=== PATIENT | male | born 1965 | race Caucasian/White ===

== ENCOUNTER 2016-03-23 20:06 | Emergency (ER) | payer MEDICARE, MEDICAID ==
[~2016-03-23 20:06] MED LIST: ADV250INH INH; ADVA230A INH; ASPI81TAEC PO; BREO1INH3 INH; LISI-542 PO; LOSA25TA8 PO; NEXI40CA PO; PROA1AER INH; SIMV40TA2 PO; SUCR1SS PO; SUCR1TA PO; ZOCO40TA PO; ZOCO80TA PO; ZOFR20TA PO
[2016-03-23] MEDS ORDERED: LOSARTAN 25 MG TAB As Ordered ONE (20:49)
--- NOTE | 2016-03-23 20:58 | REP ---
Clinical: None acute cerebral vascular accident. Comparison: 07/16/2015. Findings: Age-related atrophy and microvascular ischemic changes are appreciated. The ventricles and sulci are symmetric. Angelo-white differentiation is maintained. There is no evidence for acute intracranial hemorrhage, mass/mass effect, pathology or infarction. No extra-axial fluid collection. Calvarium is intact. Paranasal sinuses and mastoid air cells are clear. Impression: Age related atrophy and microvascular ischemic changes. No acute intracranial hemorrhage, infarction, or mass/mass effect. Signed by Julius Valdivia MD 03/23/2016 08:50 P
[2016-03-23 21:11] LABS: BASO # 0.3 K/mm3 (0.0-0.2); BASO % 2.4 % (0.0-1.0); EOS # 0.1 K/mm3 (0.0-0.50); EOS % 0.8 % (0.0-3.0); LARGE UNSTAINED CELL # 0.1 K/mm3 (0.0-0.4); LYMPH # 1.2 K/mm3 (1.5-4.5); LYMPH % 9.1 % (24.0-44.0); MEAN CORPUSCULAR HEMOGLOBIN 32.4 pg (27.0-33.0); MEAN CORPUSCULAR HGB CONC 35.6 g/dl (32.0-36.5); MEAN CORPUSCULAR VOLUME 90.9 fl (80.0-96.0); MONO # 1.1 K/mm3 (0.0-0.8); MONO % 8.5 % (0.0-5.0); NEUTROPHILS # 9.7 K/mm3 (1.8-7.7); NEUTROPHILS % 78.3 % (36.0-66.0); PLATELET COUNT, AUTOMATED 303 k/mm3 (150-450); RED CELL DISTRIBUTION WIDTH 13.2 % (11.5-14.5); WHITE BLOOD COUNT 12.4 K/mm3 (4.0-10.0)
--- NOTE | 2016-03-23 21:55 | REP ---
Clinical: Hypertension and chest pain . Comparison: 01/05/2016 . Findings: The mediastinum and cardiac silhouette are stable and mild cardiomegaly cannot be excluded. The lung mandujano are clear without acute consolidation, effusion, or pneumothorax. Skeletal structures are intact. Impression: Stable chest x-ray. No acute cardiopulmonary process. Signed by Julius Valdivia MD 03/23/2016 09:47 P
[2016-03-23 22:13] LABS: ANION GAP 10 MEQ/L (8-16); BLOOD UREA NITROGEN 11 MG/DL (7-18); CALCIUM LEVEL 9.1 MG/DL (8.5-10.1); CARBON DIOXIDE LEVEL 27 MEQ/L (21-32); CHLORIDE LEVEL 104 MEQ/L (98-107); GLOMERULAR FILTRATION RATE > 60.0 (>56); GLUCOSE, FASTING 108 MG/DL (70-105); POTASSIUM SERUM 4.1 MEQ/L (3.5-5.1); SODIUM LEVEL 141 MEQ/L (136-145)
--- NOTE | 2016-03-23 23:04 | EDDOCDS ---
Physician Documentation [facility] Name: Jacob Otero Age: 50 yrs Sex: Male : 1965 Arrival Date: 03/23/2016 Time: 20:06 Bed TR7 Private MD: Tami Campbell M. Disposition: 03/23/16 22:38 Discharged to Home/Self Care. Impression: Essential (primary) hypertension. - Condition is Stable. - Discharge Instructions: Hypertension. - Medication Reconciliation, Local Pharmacy Hours form. - Follow up: Tami Campbell; When: 2 - 3 days; Reason: Recheck today's complaints. - Problem is an ongoing problem. - Symptoms are unchanged. - Notes: You were seen in the ED for your high blood pressure. Bloodwork, EKG of the heart, cardiac monitoring, chest XRay and CT scan of the head showed no other acute findings at this time. As you are feeling better you may return home. Call your primary provider in the morning to arrange to be seen in the office for blood pressure recheck this week. Return to the ED for any headache, visual changes, weakness, numbess, chest pain, trouble breathing, or any other concerns. Historical: - Allergies: no known allergies; - Home Meds: 1. aspirin 81 mg Oral TbEC 1 tab once daily 2. Breo Ellipta 200-25 mcg/dose inhalation dsdv 1 puff once daily has not filled since September 3. losartan 25 mg oral tab once daily 4. Zocor 40 mg Oral tab 1 tab once daily 5. ProAir HFA 90 mcg/actuation inhalation HFAA 1 puff every 4 hours 6. Nexium 40 mg Oral cpDR 1 cap once daily 7. Advair Diskus 250-50 mcg/dose Inhl dsdv 1 puff 2 times per day 8. sucralfate 1 gram Oral tab 1 tab 2 times per day - PMHx: CAD; COPD; GERD; Hypercholesterolemia; Hypertension; "blockage in left side of heart, they are doing nothing with"; - Social history: Smoking status: Patient uses tobacco products, heavy tobacco smoker. Patient uses alcohol only on a social basis. Race: White, Ethnicity: Not or No barriers to communication noted, The patient speaks fluent Occitan, Preferred Language: Occitan. - Family history: Not pertinent. - : The pt / caregiver states he / she is not on anticoagulants. Home medication list is obtained from a discharge med list. - Exposure Risk Screening:: None identified. Vital Signs: 03/23 20:15 BP 136 / 73; Pulse 67; Resp 18; Temp 97.7(O); Pulse Ox 96% on R/A; Weight 87.09 kg / ls3 192 lbs; Height 6 ft. 1 in. (185.42 cm); Pain 0/10; 20:26 BP 148 / 77 (auto/); cf2 20:35 Pulse 58 MON; Pulse Ox 94% ; cf2 20:41 BP 159 / 78 (auto/); cf2 20:42 Pulse 70 MON; Pulse Ox 95% ; cf2 20:56 BP 153 / 74 (auto/); cf2 20:57 Pulse 60 MON; Pulse Ox 93% ; cf2 21:11 BP 170 / 89 (auto/); cf2 21:12 Pulse 68 MON; Pulse Ox 98% ; cf2 21:26 BP 171 / 95 (auto/); cf2 21:27 Pulse 72 MON; Pulse Ox 97% ; cf2 21:41 BP 165 / 95 (auto/); cf2 21:42 Pulse 74 MON; Pulse Ox 98% ; cf2 21:56 BP 169 / 98 (auto/); sls1 21:57 Pulse 90 MON; Pulse Ox 96% ; sls1 22:11 BP 172 / 93 (auto/); sls1 22:12 Pulse 72 MON; Pulse Ox 96% ; sls1 22:26 BP 175 / 96 (auto/); sls1 22:26 Pulse 76 MON; Pulse Ox 96% ; sls1 22:30 Pulse 82 MON; Resp 20; Pulse Ox 100% on R/A; sls1 22:31 BP 168 / 88 (auto/); sls1 20:15 Body Mass Index 25.33 (87.09 kg, 185.42 cm) ls3 MDM: 20:25 IV Saline Lock ordered. br1 20:25 Nut Chopper/Pulse Ox/q 30 min VS ordered. br1 20:25 Losartan 25 mg PO once ordered. br1 20:26 CBC with Diff Ordered. EDMS 20:26 BMP Ordered. EDMS 20:26 Troponin Ordered. EDMS 20:26 Chest, 1 View Ordered. EDMS 20:26 ECG WITH READING ER PHYS+CARDIAG ordered. EDMS 20:26 CT Head Without Contrast Ordered. EDMS 21:10 Financial registration complete. zo 21:11 [facility] Payment Agreement was scanned into [employer] and attached to record. zo 21:40 CBC with Diff Reviewed. br1 21:40 CT Head Without Contrast Reviewed. br1 22:29 BMP Reviewed. br1 22:29 Troponin Reviewed. br1 Administered Medications: 21:18 Drug: Losartan 25 mg [losartan 25 mg tablet (1 tabs)] Route: PO; cf2 Signatures: Dispatcher [employer] EDMS Eugenio Spears zo Watson Cardoza MD MD br1 Elisabet Valerio RN RN sls1 Eugenia Hdz RN RN cf2 The chart was reviewed and I authenticate all verbal orders and agree with the evaluation and treatment provided.Attachments: 21:11 [facility] Payment Agreement zo MTDD
--- NOTE | 2016-03-23 23:05 | EDDOCDS ---
Nurse's Notes [facility] Name: Jacob Otero Age: 50 yrs Sex: Male : 1965 Arrival Date: 03/23/2016 Time: 20:06 Bed TR7 Private MD: Tami Campbell M. Diagnosis: Essential (primary) hypertension Presentation: 03/23 20:14 Presenting complaint: Patient states: "my blood pressure was high today and my left leg cf2 hurts". Patient states at "1330, my blood pressure high number was 150's and at 1800 it was 180's". Denies injury or trauma to left leg EMS states: "Patient states elevated blood pressure, blood pressure was stable". Adult Sepsis Screening: The patient does not have new or worsening altered mentation. Patient's respiratory rate is less than 22. Systolic blood pressure is greater than 100. Patient has a qSOFA score of 0- Negative Sepsis Screen. Suicide/Homicide risk assessment- the patient denies having any suicidal and/or homicidal ideations and does not present with any other emotional, behavioral or mental health complaints. 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 Transition of care: patient was not received from another setting of care. 20:14 Acuity: ROBINSON Level 3 cf2 20:14 Method Of Arrival: Ambulance cf2 Triage Assessment: 20:21 General: Appears in no apparent distress, comfortable, Behavior is appropriate for age, cf2 cooperative. Pain: Location: left leg Pain does not radiate. Pt Declines HIV testing. Historical: - Allergies: no known allergies; - Home Meds: 1. aspirin 81 mg Oral TbEC 1 tab once daily 2. Breo Ellipta 200-25 mcg/dose inhalation dsdv 1 puff once daily has not filled since September 3. losartan 25 mg oral tab once daily 4. Zocor 40 mg Oral tab 1 tab once daily 5. ProAir HFA 90 mcg/actuation inhalation HFAA 1 puff every 4 hours 6. Nexium 40 mg Oral cpDR 1 cap once daily 7. Advair Diskus 250-50 mcg/dose Inhl dsdv 1 puff 2 times per day 8. sucralfate 1 gram Oral tab 1 tab 2 times per day - PMHx: CAD; COPD; GERD; Hypercholesterolemia; Hypertension; "blockage in left side of heart, they are doing nothing with"; - Social history: Smoking status: Patient uses tobacco products, heavy tobacco smoker. Patient uses alcohol only on a social basis. Race: White, Ethnicity: Not or No barriers to communication noted, The patient speaks fluent Cuban, Preferred Language: Cuban. - Family history: Not pertinent. - : The pt / caregiver states he / she is not on anticoagulants. Home medication list is obtained from a discharge med list. - Exposure Risk Screening:: None identified. Screenin:43 Screening information is obtained from the patient. Fall risk: No risks identified. cf2 Assistance ADL's: requires no assistance with activities of daily living. Abuse/DV Screen: The patient / caregiver reports he/she is: not in a situation that causes fear, pain or injury. Nutritional screening: No deficits noted. Advance Directives: Further advance directive information is declined. home support is adequate. Assessment: 20:22 General: See triage note. cf2 21:43 Adult Sepsis Screening: The patient does not have new or worsening altered mentation. cf2 Patient's respiratory rate is less than 22. Systolic blood pressure is greater than 100. Patient has a qSOFA score of 0- Negative Sepsis Screen. Pain: Denies pain. Neurological: No deficits noted. EENT: No deficits noted. Cardiovascular: No deficits noted. Respiratory: No deficits noted. GI: No deficits noted. : No deficits noted. Derm: No deficits noted. Musculoskeletal: No deficits noted. Injury Description: No known injury. 23:02 General: Appears in no apparent distress, Behavior is appropriate for age, cooperative, sls1 Discharge instructions reviewed with pt including follow up care, verbalizes understanding of all instructions, pt dc home via medicaid cab. Pain: Denies pain. Neurological: Level of Consciousness is awake, alert. Respiratory: Airway is patent Respiratory effort is even, unlabored, Respiratory pattern is regular, symmetrical. Vital Signs: 20:15 BP 136 / 73; Pulse 67; Resp 18; Temp 97.7(O); Pulse Ox 96% on R/A; Weight 87.09 kg; ls3 Height 6 ft. 1 in. (185.42 cm); Pain 0/10; 20:26 BP 148 / 77 (auto/); cf2 20:35 Pulse 58 MON; Pulse Ox 94% ; cf2 20:41 BP 159 / 78 (auto/); cf2 20:42 Pulse 70 MON; Pulse Ox 95% ; cf2 20:56 BP 153 / 74 (auto/); cf2 20:57 Pulse 60 MON; Pulse Ox 93% ; cf2 21:11 BP 170 / 89 (auto/); cf2 21:12 Pulse 68 MON; Pulse Ox 98% ; cf2 21:26 BP 171 / 95 (auto/); cf2 21:27 Pulse 72 MON; Pulse Ox 97% ; cf2 21:41 BP 165 / 95 (auto/); cf2 21:42 Pulse 74 MON; Pulse Ox 98% ; cf2 21:56 BP 169 / 98 (auto/); sls1 21:57 Pulse 90 MON; Pulse Ox 96% ; sls1 22:11 BP 172 / 93 (auto/); sls1 22:12 Pulse 72 MON; Pulse Ox 96% ; sls1 22:26 BP 175 / 96 (auto/); sls1 22:26 Pulse 76 MON; Pulse Ox 96% ; sls1 22:30 Pulse 82 MON; Resp 20; Pulse Ox 100% on R/A; sls1 22:31 BP 168 / 88 (auto/); sls1 20:15 Body Mass Index 25.33 (87.09 kg, 185.42 cm) ls3 Vitals: 20:21 Log In Time N/A - ambulance arrival. cf2 ED Course: 20:07 Patient visited by Magdalena Reyes PCA. tmm1 20:07 Patient moved to Waiting tmm1 20:08 Tami Campbell is Private Physician. tmm1 20:08 Patient moved to 10 tmm1 20:09 Watson Cardoza MD is Attending Physician. br1 20:14 Eugenia Hdz,RN is Primary Nurse. cf2 20:14 Patient visited by Eugenia Hdz,SANTI. cf2 20:16 Patient visited by Krista Gongora PCA. ls3 20:17 Triage Initiated cf2 20:23 Patient visited by Watson Cardoza MD. br1 20:31 Patient visited by Eugenia Hdz,RN. cf2 20:58 Patient visited by Krista Gongora PCA. ls3 20:58 EKG done. (by ED staff). Reviewed by Watson Cardoza MD. ls3 21:11 [facility] Payment Agreement was scanned into [employer] and attached to record. zo 21:38 CT Head Without Contrast Returned. EDMS 21:43 Patient visited by Eugenia Hdz,SANTI. cf2 21:43 The patient / caregiver is instructed regarding the plan of care and ED course. Patient cf2 has correct armband on for positive identification. Placed in gown. Bed in low position. Call light in reach. Side rails up X 1. Side rails up X2. senior cyber intelligence analyst on. Pulse ox on. NIBP on. Property :Personal belongings accompany Pt. Door closed. Noise minimized. Visitors limited. Lights dimmed. Moved to private room. Verbal reassurance given. Warm blanket given. Pillow given. Head of bed elevated. 21:43 Inserted saline lock: 20 gauge in left forearm and blood collected. The patient cf2 tolerated the procedure well. No procedures done that require assistance. Labs drawn. (by ED staff). 22:19 Patient visited by Eugenia Hdz RN. cf2 22:30 Discontinued lock intact, bleeding controlled, pressure dressing applied, No sls1 redness/swelling at site. 22:32 Patient visited by Watson Cardoza MD. br1 22:37 Tami Campbell is Referral Physician. br1 22:46 Chest, 1 View Returned. EDMS 23:02 Patient moved to [place] [id number] Administered Medications: 21:18 Drug: Losartan 25 mg [losartan 25 mg tablet (1 tabs)] Route: PO; cf2 Order Results: Lab Order: CBC with Diff; SPEC'M 03/23/16 20:57 Test: WHITE BLOOD COUNT; Value: 12.4; Range: 4.0-10.0; Abnormal: Above high normal; Units: K/mm3; Status: F Test: RED BLOOD COUNT; Value: 5.23; Range: 4.30-6.10; Units: M/mm3; Status: F Test: HEMOGLOBIN; Value: 16.9; Range: 14.0-18.0; Units: g/dl; Status: F Test: HEMATOCRIT; Value: 47.5; Range: 42.0-52.0; Units: %; Status: F Test: MEAN CORPUSCULAR VOLUME; Value: 90.9; Range: 80.0-96.0; Units: fl; Status: F Test: MEAN CORPUSCULAR HEMOGLOBIN; Value: 32.4; Range: 27.0-33.0; Units: pg; Status: F Test: MEAN CORPUSCULAR HGB CONC; Value: 35.6; Range: 32.0-36.5; Units: g/dl; Status: F Test: RED CELL DISTRIBUTION WIDTH; Value: 13.2; Range: 11.5-14.5; Units: %; Status: F Test: PLATELET COUNT, AUTOMATED; Value: 303; Range: 150-450; Units: k/mm3; Status: F Test: NEUTROPHILS %; Value: 78.3; Range: 36.0-66.0; Abnormal: Above high normal; Units: %; Status: F Test: LYMPH %; Value: 9.1; Range: 24.0-44.0; Abnormal: Below low normal; Units: %; Status: F Test: MONO %; Value: 8.5; Range: 0.0-5.0; Abnormal: Above high normal; Units: %; Status: F Test: EOS %; Value: 0.8; Range: 0.0-3.0; Units: %; Status: F Test: BASO %; Value: 2.4; Range: 0.0-1.0; Abnormal: Above high normal; Units: %; Status: F Test: LARGE UNSTAINED CELL %; Value: 1.0; Range: 0.0-4.0; Units: %; Status: F Test: NEUTROPHILS #; Value: 9.7; Range: 1.8-7.7; Abnormal: Above high normal; Units: K/mm3; Status: F Test: LYMPH #; Value: 1.2; Range: 1.5-4.5; Abnormal: Below low normal; Units: K/mm3; Status: F Test: MONO #; Value: 1.1; Range: 0.0-0.8; Abnormal: Above high normal; Units: K/mm3; Status: F Test: EOS #; Value: 0.1; Range: 0.0-0.50; Units: K/mm3; Status: F Test: BASO #; Value: 0.3; Range: 0.0-0.2; Abnormal: Above high normal; Units: K/mm3; Status: F Test: LARGE UNSTAINED CELL #; Value: 0.1; Range: 0.0-0.4; Units: K/mm3; Status: F Lab Order: BMP; SPEC'M 03/23/16 21:38 Test: GLUCOSE, FASTING; Value: 108; Range: 70-105; Abnormal: Above high normal; Units: MG/DL; Status: F Test: BLOOD UREA NITROGEN; Value: 11; Range: 7-18; Units: MG/DL; Status: F Test: CREATININE FOR GFR; Value: 1.10; Range: 0.70-1.30; Units: MG/DL; Status: F Test: GLOMERULAR FILTRATION RATE; Value: > 60.0; Range: >56; Status: F Test: SODIUM LEVEL; Value: 141; Range: 136-145; Units: MEQ/L; Status: F Test: POTASSIUM SERUM; Value: 4.1; Range: 3.5-5.1; Units: MEQ/L; Status: F Test: CHLORIDE LEVEL; Value: 104; Range: 98-107; Units: MEQ/L; Status: F Test: CARBON DIOXIDE LEVEL; Value: 27; Range: 21-32; Units: MEQ/L; Status: F Test: ANION GAP; Value: 10; Range: 8-16; Units: MEQ/L; Status: F Test: CALCIUM LEVEL; Value: 9.1; Range: 8.5-10.1; Units: MG/DL; Status: F Test Note: ; Units are mL/min/1.73 m2 Chronic Kidney Disease Staging per NKF: Stage I & II GFR >=60 Normal to Mildly Decreased Stage III GFR 30-59 Moderately Decreased Stage IV GFR 15-29 Severely Decreased Stage V GFR <15 Very Little GFR Left ESRD GFR <15 on FORMSTONE FITTER Lab Order: Troponin; SPEC'M 03/23/16 21:38 Test: TROPONIN I; Value: < 0.02; Range: < 0.10; Units: NG/ML; Status: F Test Note: ; Troponin I Reference Interval for [employer] LOCI: 99th Percentile= 0.00-0.045 ng/ml Risk Stratification: <= 0.10 ng/ml Decreased Risk for Adverse Clinical Events. 0.10-1.50 ng/ml Increased Risk for Adverse Clinical Events. Evaluation of additional criterion and/or repeat testing in 2-6 hours is suggested to rule out myocardial damage. >= 1.50 ng/ml Indicative of Myocardial Injury. Radiology Order: Chest, 1 View Test: Chest, 1 View REASON FOR EXAMINATION: htn eval for chf; Clinical: Hypertension and chest pain .; ; Comparison: 01/05/2016 .; ; Findings:; The mediastinum and cardiac silhouette are stable and mild cardiomegaly cannot be; excluded. The lung mandujano are clear without acute consolidation, effusion, or; pneumothorax. Skeletal structures are intact.; ; Impression:; Stable chest x-ray. No acute cardiopulmonary process.; ; ; Signed by; Julius Valdivia MD 03/23/2016 09:47 P; Radiology Order: CT Head Without Contrast Test: CT Head Without Contrast REASON FOR EXAMINATION: CVA >4.5hrs; Clinical: None acute cerebral vascular accident.; ; Comparison: 07/16/2015.; ; Findings:; Age-related atrophy and microvascular ischemic changes are appreciated. The; ventricles and sulci are symmetric. Angelo-white differentiation is maintained.; There is no evidence for acute intracranial hemorrhage, mass/mass effect,; pathology or infarction. No extra-axial fluid collection. Calvarium is intact.; Paranasal sinuses and mastoid air cells are clear.; ; Impression:; Age related atrophy and microvascular ischemic changes.; No acute intracranial hemorrhage, infarction, or mass/mass effect.; ; ; Signed by; Julius Valdivia MD 03/23/2016 08:50 P; Outcome: 21:43 CT Study completed. cf2 22:30 Discharge Assessment: Patient awake, alert and oriented x 3. No cognitive and/or sls1 functional deficits noted. Patient verbalized understanding of disposition instructions. patient administered narcotics - no. The following High Risk Discharge criteria are identified: None. Discharged to home ambulatory. Condition: stable. Discharge instructions given to patient, Instructed on discharge instructions, follow up and referral plans. Demonstrated understanding of instructions, Pt was receptive of discharge instructions/ teaching. 22:38 Discharge ordered by Provider. br1 23:04 Patient left the ED. sls1 Signatures: Dispatcher [employer] EDMS Eugenio Spears Brian, MD MD br1 Elisabet Valerio RN RN sls1 Magdalena Reyes, FULL SERVICE SUPERVISOR FULL SERVICE SUPERVISOR tmm1 Krista Gongora, FULL SERVICE SUPERVISOR FULL SERVICE SUPERVISOR ls3 Eugenia Hdz,SANTI RN cf2 MTDD
--- NOTE | 2016-03-24 18:02 | ECGEPIP ---
Stationary ECG Study [facility] - ED Test Date: 2016-03-23 Pat Name: MINH MALDONADO Department: Room: - Gender: M [employer]er Machine: : [id number] Requested By: AROLDO Castillo Order Number: [id number] Reading MD: Christina Patel Measurements Intervals [place] Rate: 62 P: 62 SC: 169 QRS: 3 QRSD: 170 T: 147 QT: 478 QTc: 489 Interpretive Statements SINUS RHYTHM WITH SINUS ARRHYTHMIA LEFT BUNDLE BRANCH BLOCK INCREASED RATE 01/06/16 Electronically Signed On 03-24-2016 18:02:19 EST by Christina Patel
--- NOTE | 2016-03-26 00:05 | EDDOCDS ---
Physician Documentation [facility] Name: Jacob Otero Age: 50 yrs Sex: Male : 1965 Arrival Date: 03/23/2016 Time: 20:06 Bed TR7 Private MD: Tami Campbell M. Disposition: 03/23/16 22:38 Discharged to Home/Self Care. Impression: Essential (primary) hypertension. - Condition is Stable. - Discharge Instructions: Hypertension. - Medication Reconciliation, Local Pharmacy Hours form. - Follow up: Tami Campbell; When: 2 - 3 days; Reason: Recheck today's complaints. - Problem is an ongoing problem. - Symptoms are unchanged. - Notes: You were seen in the ED for your high blood pressure. Bloodwork, EKG of the heart, cardiac monitoring, chest XRay and CT scan of the head showed no other acute findings at this time. As you are feeling better you may return home. Call your primary provider in the morning to arrange to be seen in the office for blood pressure recheck this week. Return to the ED for any headache, visual changes, weakness, numbess, chest pain, trouble breathing, or any other concerns. Historical: - Allergies: no known allergies; - Home Meds: 1. aspirin 81 mg Oral TbEC 1 tab once daily 2. Breo Ellipta 200-25 mcg/dose inhalation dsdv 1 puff once daily has not filled since September 3. losartan 25 mg oral tab once daily 4. Zocor 40 mg Oral tab 1 tab once daily 5. ProAir HFA 90 mcg/actuation inhalation HFAA 1 puff every 4 hours 6. Nexium 40 mg Oral cpDR 1 cap once daily 7. Advair Diskus 250-50 mcg/dose Inhl dsdv 1 puff 2 times per day 8. sucralfate 1 gram Oral tab 1 tab 2 times per day - PMHx: CAD; COPD; GERD; Hypercholesterolemia; Hypertension; "blockage in left side of heart, they are doing nothing with"; - Social history: Smoking status: Patient uses tobacco products, heavy tobacco smoker. Patient uses alcohol only on a social basis. Race: White, Ethnicity: Not or No barriers to communication noted, The patient speaks fluent Pashto, Preferred Language: Pashto. - Family history: Not pertinent. - : The pt / caregiver states he / she is not on anticoagulants. Home medication list is obtained from a discharge med list. - Exposure Risk Screening:: None identified. Vital Signs: 03/23 20:15 BP 136 / 73; Pulse 67; Resp 18; Temp 97.7(O); Pulse Ox 96% on R/A; Weight 87.09 kg / ls3 192 lbs; Height 6 ft. 1 in. (185.42 cm); Pain 0/10; 20:26 BP 148 / 77 (auto/); cf2 20:35 Pulse 58 MON; Pulse Ox 94% ; cf2 20:41 BP 159 / 78 (auto/); cf2 20:42 Pulse 70 MON; Pulse Ox 95% ; cf2 20:56 BP 153 / 74 (auto/); cf2 20:57 Pulse 60 MON; Pulse Ox 93% ; cf2 21:11 BP 170 / 89 (auto/); cf2 21:12 Pulse 68 MON; Pulse Ox 98% ; cf2 21:26 BP 171 / 95 (auto/); cf2 21:27 Pulse 72 MON; Pulse Ox 97% ; cf2 21:41 BP 165 / 95 (auto/); cf2 21:42 Pulse 74 MON; Pulse Ox 98% ; cf2 21:56 BP 169 / 98 (auto/); sls1 21:57 Pulse 90 MON; Pulse Ox 96% ; sls1 22:11 BP 172 / 93 (auto/); sls1 22:12 Pulse 72 MON; Pulse Ox 96% ; sls1 22:26 BP 175 / 96 (auto/); sls1 22:26 Pulse 76 MON; Pulse Ox 96% ; sls1 22:30 Pulse 82 MON; Resp 20; Pulse Ox 100% on R/A; sls1 22:31 BP 168 / 88 (auto/); sls1 20:15 Body Mass Index 25.33 (87.09 kg, 185.42 cm) ls3 MDM: 20:25 IV Saline Lock ordered. br1 20:25 Tube Sizer And Cutter Operator/Pulse Ox/q 30 min VS ordered. br1 20:25 Losartan 25 mg PO once ordered. br1 20:26 CBC with Diff Ordered. EDMS 20:26 BMP Ordered. EDMS 20:26 Troponin Ordered. EDMS 20:26 Chest, 1 View Ordered. EDMS 20:26 ECG WITH READING ER PHYS+CARDIAG ordered. EDMS 20:26 CT Head Without Contrast Ordered. EDMS 21:10 Financial registration complete. zo 21:11 [facility] Payment Agreement was scanned into [employer] and attached to record. zo 21:40 CBC with Diff Reviewed. br1 21:40 CT Head Without Contrast Reviewed. br1 22:29 BMP Reviewed. br1 22:29 Troponin Reviewed. br1 03/24 09:32 T-Sheet-- Draft Copy was scanned into [employer] and attached to record. gb 09:33 ECG/EKG was scanned into [employer] and attached to record. gb 13:02 PCR was scanned into [employer] and attached to record. gb Administered Medications: 03/23 21:18 Drug: Losartan 25 mg [losartan 25 mg tablet (1 tabs)] Route: PO; cf2 Signatures: Dispatcher [employer] EDMS Jo Ann Umana, Reg Reg gb Eugenio Spears zo Watson Cardoza MD MD br1 Elisabet Valerio RN RN sls1 Eugenia Hdz RN RN cf2 The chart was reviewed and I authenticate all verbal orders and agree with the evaluation and treatment provided.Attachments: 21:11 [facility] Payment Agreement zo 03/24 09:32 T-Sheet-- Draft Copy gb 09:33 ECG/EKG gb Chart Complete MTDD
--- NOTE | 2016-03-26 00:05 | EDDOCDS ---
Nurse's Notes [facility] Name: Minh Otero Age: 50 yrs Sex: Male : 1965 Arrival Date: 03/23/2016 Time: 20:06 Bed TR7 Private MD: Tami Campbell M. Diagnosis: Essential (primary) hypertension Presentation: 03/23 20:14 Presenting complaint: Patient states: "my blood pressure was high today and my left leg cf2 hurts". Patient states at "1330, my blood pressure high number was 150's and at 1800 it was 180's". Denies injury or trauma to left leg EMS states: "Patient states elevated blood pressure, blood pressure was stable". Adult Sepsis Screening: The patient does not have new or worsening altered mentation. Patient's respiratory rate is less than 22. Systolic blood pressure is greater than 100. Patient has a qSOFA score of 0- Negative Sepsis Screen. Suicide/Homicide risk assessment- the patient denies having any suicidal and/or homicidal ideations and does not present with any other emotional, behavioral or mental health complaints. Status: Unknown if supervisor volunteer services or dependent. Transition of care: patient was not received from another setting of care. 20:14 Acuity: ROBINSON Level 3 cf2 20:14 Method Of Arrival: Ambulance cf2 Triage Assessment: 20:21 General: Appears in no apparent distress, comfortable, Behavior is appropriate for age, cf2 cooperative. Pain: Location: left leg Pain does not radiate. Pt Declines HIV testing. Historical: - Allergies: no known allergies; - Home Meds: 1. aspirin 81 mg Oral TbEC 1 tab once daily 2. Breo Ellipta 200-25 mcg/dose inhalation dsdv 1 puff once daily has not filled since September 3. losartan 25 mg oral tab once daily 4. Zocor 40 mg Oral tab 1 tab once daily 5. ProAir HFA 90 mcg/actuation inhalation HFAA 1 puff every 4 hours 6. Nexium 40 mg Oral cpDR 1 cap once daily 7. Advair Diskus 250-50 mcg/dose Inhl dsdv 1 puff 2 times per day 8. sucralfate 1 gram Oral tab 1 tab 2 times per day - PMHx: CAD; COPD; GERD; Hypercholesterolemia; Hypertension; "blockage in left side of heart, they are doing nothing with"; - Social history: Smoking status: Patient uses tobacco products, heavy tobacco smoker. Patient uses alcohol only on a social basis. Race: White, Ethnicity: Not or No barriers to communication noted, The patient speaks fluent German, Preferred Language: German. - Family history: Not pertinent. - : The pt / caregiver states he / she is not on anticoagulants. Home medication list is obtained from a discharge med list. - Exposure Risk Screening:: None identified. Screenin:43 Screening information is obtained from the patient. Fall risk: No risks identified. cf2 Assistance ADL's: requires no assistance with activities of daily living. Abuse/DV Screen: The patient / caregiver reports he/she is: not in a situation that causes fear, pain or injury. Nutritional screening: No deficits noted. Advance Directives: Further advance directive information is declined. home support is adequate. Assessment: 20:22 General: See triage note. cf2 21:43 Adult Sepsis Screening: The patient does not have new or worsening altered mentation. cf2 Patient's respiratory rate is less than 22. Systolic blood pressure is greater than 100. Patient has a qSOFA score of 0- Negative Sepsis Screen. Pain: Denies pain. Neurological: No deficits noted. EENT: No deficits noted. Cardiovascular: No deficits noted. Respiratory: No deficits noted. GI: No deficits noted. : No deficits noted. Derm: No deficits noted. Musculoskeletal: No deficits noted. Injury Description: No known injury. 23:02 General: Appears in no apparent distress, Behavior is appropriate for age, cooperative, sls1 Discharge instructions reviewed with pt including follow up care, verbalizes understanding of all instructions, pt dc home via medicaid cab. Pain: Denies pain. Neurological: Level of Consciousness is awake, alert. Respiratory: Airway is patent Respiratory effort is even, unlabored, Respiratory pattern is regular, symmetrical. Vital Signs: 20:15 BP 136 / 73; Pulse 67; Resp 18; Temp 97.7(O); Pulse Ox 96% on R/A; Weight 87.09 kg; ls3 Height 6 ft. 1 in. (185.42 cm); Pain 0/10; 20:26 BP 148 / 77 (auto/); cf2 20:35 Pulse 58 MON; Pulse Ox 94% ; cf2 20:41 BP 159 / 78 (auto/); cf2 20:42 Pulse 70 MON; Pulse Ox 95% ; cf2 20:56 BP 153 / 74 (auto/); cf2 20:57 Pulse 60 MON; Pulse Ox 93% ; cf2 21:11 BP 170 / 89 (auto/); cf2 21:12 Pulse 68 MON; Pulse Ox 98% ; cf2 21:26 BP 171 / 95 (auto/); cf2 21:27 Pulse 72 MON; Pulse Ox 97% ; cf2 21:41 BP 165 / 95 (auto/); cf2 21:42 Pulse 74 MON; Pulse Ox 98% ; cf2 21:56 BP 169 / 98 (auto/); sls1 21:57 Pulse 90 MON; Pulse Ox 96% ; sls1 22:11 BP 172 / 93 (auto/); sls1 22:12 Pulse 72 MON; Pulse Ox 96% ; sls1 22:26 BP 175 / 96 (auto/); sls1 22:26 Pulse 76 MON; Pulse Ox 96% ; sls1 22:30 Pulse 82 MON; Resp 20; Pulse Ox 100% on R/A; sls1 22:31 BP 168 / 88 (auto/); sls1 20:15 Body Mass Index 25.33 (87.09 kg, 185.42 cm) ls3 Vitals: 20:21 Log In Time N/A - ambulance arrival. cf2 ED Course: 20:07 Patient visited by Magdalena Reyes PCA. tmm1 20:07 Patient moved to Waiting tmm1 20:08 Tami Campbell is Private Physician. tmm1 20:08 Patient moved to 10 tmm1 20:09 Watson Cardoza MD is Attending Physician. br1 20:14 Eugenia Hdz,RN is Primary Nurse. cf2 20:14 Patient visited by Eugenia Hdz,SANTI. cf2 20:16 Patient visited by Krista Gongora PCA. ls3 20:17 Triage Initiated cf2 20:23 Patient visited by Watson Cardoza MD. br1 20:31 Patient visited by Eugenia Hdz,RN. cf2 20:58 Patient visited by Krista Gongora PCA. ls3 20:58 EKG done. (by ED staff). Reviewed by Watson Cardoza MD. ls3 21:11 [facility] Payment Agreement was scanned into [employer] and attached to record. zo 21:38 CT Head Without Contrast Returned. EDMS 21:43 Patient visited by Eugenia Hdz,SANTI. cf2 21:43 The patient / caregiver is instructed regarding the plan of care and ED course. Patient cf2 has correct armband on for positive identification. Placed in gown. Bed in low position. Call light in reach. Side rails up X 1. Side rails up X2. court monitor on. Pulse ox on. NIBP on. Property :Personal belongings accompany Pt. Door closed. Noise minimized. Visitors limited. Lights dimmed. Moved to private room. Verbal reassurance given. Warm blanket given. Pillow given. Head of bed elevated. 21:43 Inserted saline lock: 20 gauge in left forearm and blood collected. The patient cf2 tolerated the procedure well. No procedures done that require assistance. Labs drawn. (by ED staff). 22:19 Patient visited by Eugenia Hdz,SANTI. cf2 22:30 Discontinued lock intact, bleeding controlled, pressure dressing applied, No sls1 redness/swelling at site. 22:32 Patient visited by Watson Cardoza MD. br1 22:37 Tami Campbell is Referral Physician. br1 22:46 Chest, 1 View Returned. EDMS 23:02 Patient moved to [place] [id number] 03/24 09:32 T-Sheet-- Draft Copy was scanned into [employer] and attached to record. gb 09:33 ECG/EKG was scanned into [employer] and attached to record. gb 13:02 PCR was scanned into [employer] and attached to record. gb 18:09 EKG-ADULT Returned. EDMS Administered Medications: 03/23 21:18 Drug: Losartan 25 mg [losartan 25 mg tablet (1 tabs)] Route: PO; cf2 Order Results: Lab Order: CBC with Diff; SPEC'M 03/23/16 20:57 Test: WHITE BLOOD COUNT; Value: 12.4; Range: 4.0-10.0; Abnormal: Above high normal; Units: K/mm3; Status: F Test: RED BLOOD COUNT; Value: 5.23; Range: 4.30-6.10; Units: M/mm3; Status: F Test: HEMOGLOBIN; Value: 16.9; Range: 14.0-18.0; Units: g/dl; Status: F Test: HEMATOCRIT; Value: 47.5; Range: 42.0-52.0; Units: %; Status: F Test: MEAN CORPUSCULAR VOLUME; Value: 90.9; Range: 80.0-96.0; Units: fl; Status: F Test: MEAN CORPUSCULAR HEMOGLOBIN; Value: 32.4; Range: 27.0-33.0; Units: pg; Status: F Test: MEAN CORPUSCULAR HGB CONC; Value: 35.6; Range: 32.0-36.5; Units: g/dl; Status: F Test: RED CELL DISTRIBUTION WIDTH; Value: 13.2; Range: 11.5-14.5; Units: %; Status: F Test: PLATELET COUNT, AUTOMATED; Value: 303; Range: 150-450; Units: k/mm3; Status: F Test: NEUTROPHILS %; Value: 78.3; Range: 36.0-66.0; Abnormal: Above high normal; Units: %; Status: F Test: LYMPH %; Value: 9.1; Range: 24.0-44.0; Abnormal: Below low normal; Units: %; Status: F Test: MONO %; Value: 8.5; Range: 0.0-5.0; Abnormal: Above high normal; Units: %; Status: F Test: EOS %; Value: 0.8; Range: 0.0-3.0; Units: %; Status: F Test: BASO %; Value: 2.4; Range: 0.0-1.0; Abnormal: Above high normal; Units: %; Status: F Test: LARGE UNSTAINED CELL %; Value: 1.0; Range: 0.0-4.0; Units: %; Status: F Test: NEUTROPHILS #; Value: 9.7; Range: 1.8-7.7; Abnormal: Above high normal; Units: K/mm3; Status: F Test: LYMPH #; Value: 1.2; Range: 1.5-4.5; Abnormal: Below low normal; Units: K/mm3; Status: F Test: MONO #; Value: 1.1; Range: 0.0-0.8; Abnormal: Above high normal; Units: K/mm3; Status: F Test: EOS #; Value: 0.1; Range: 0.0-0.50; Units: K/mm3; Status: F Test: BASO #; Value: 0.3; Range: 0.0-0.2; Abnormal: Above high normal; Units: K/mm3; Status: F Test: LARGE UNSTAINED CELL #; Value: 0.1; Range: 0.0-0.4; Units: K/mm3; Status: F Lab Order: BMP; SPEC'M 03/23/16 21:38 Test: GLUCOSE, FASTING; Value: 108; Range: 70-105; Abnormal: Above high normal; Units: MG/DL; Status: F Test: BLOOD UREA NITROGEN; Value: 11; Range: 7-18; Units: MG/DL; Status: F Test: CREATININE FOR GFR; Value: 1.10; Range: 0.70-1.30; Units: MG/DL; Status: F Test: GLOMERULAR FILTRATION RATE; Value: > 60.0; Range: >56; Status: F Test: SODIUM LEVEL; Value: 141; Range: 136-145; Units: MEQ/L; Status: F Test: POTASSIUM SERUM; Value: 4.1; Range: 3.5-5.1; Units: MEQ/L; Status: F Test: CHLORIDE LEVEL; Value: 104; Range: 98-107; Units: MEQ/L; Status: F Test: CARBON DIOXIDE LEVEL; Value: 27; Range: 21-32; Units: MEQ/L; Status: F Test: ANION GAP; Value: 10; Range: 8-16; Units: MEQ/L; Status: F Test: CALCIUM LEVEL; Value: 9.1; Range: 8.5-10.1; Units: MG/DL; Status: F Test Note: ; Units are mL/min/1.73 m2 Chronic Kidney Disease Staging per NKF: Stage I & II GFR >=60 Normal to Mildly Decreased Stage III GFR 30-59 Moderately Decreased Stage IV GFR 15-29 Severely Decreased Stage V GFR <15 Very Little GFR Left ESRD GFR <15 on HAND SCREEN PRINTER Lab Order: Troponin; SPEC'M 03/23/16 21:38 Test: TROPONIN I; Value: < 0.02; Range: < 0.10; Units: NG/ML; Status: F Test Note: ; Troponin I Reference Interval for Siemens [place] LOCI: 99th Percentile= 0.00-0.045 ng/ml Risk Stratification: <= 0.10 ng/ml Decreased Risk for Adverse Clinical Events. 0.10-1.50 ng/ml Increased Risk for Adverse Clinical Events. Evaluation of additional criterion and/or repeat testing in 2-6 hours is suggested to rule out myocardial damage. >= 1.50 ng/ml Indicative of Myocardial Injury. Radiology Order: EKG-ADULT Test: EKG-ADULT REASON FOR EXAMINATION: dysrhythmia; Stationary ECG Study; [facility] - ED; ; Test Date: 2016-03-23; Pat Name: MINH OTERO Department:; Room: -; Gender: M [employer]:; : 1965 Requested By: WATSON Castillo; Order Number: [id number] Reading MD: Christina Patel; Measurements; Intervals [place]; Rate: 62 P: 62; RI: 169 QRS: 3; QRSD: 170 T: 147; QT: 478; QTc: 489; Interpretive Statements; SINUS RHYTHM WITH SINUS ARRHYTHMIA; LEFT BUNDLE BRANCH BLOCK; INCREASED RATE 01/06/16; Electronically Signed On 03-24-2016 18:02:19 EST by Christina Patel; Radiology Order: Chest, 1 View Test: Chest, 1 View REASON FOR EXAMINATION: htn eval for chf; Clinical: Hypertension and chest pain .; ; Comparison: 01/05/2016 .; ; Findings:; The mediastinum and cardiac silhouette are stable and mild cardiomegaly cannot be; excluded. The lung mandujano are clear without acute consolidation, effusion, or; pneumothorax. Skeletal structures are intact.; ; Impression:; Stable chest x-ray. No acute cardiopulmonary process.; ; ; Signed by; Julius Valdivia MD 03/23/2016 09:47 P; Radiology Order: CT Head Without Contrast Test: CT Head Without Contrast REASON FOR EXAMINATION: CVA >4.5hrs; Clinical: None acute cerebral vascular accident.; ; Comparison: 07/16/2015.; ; Findings:; Age-related atrophy and microvascular ischemic changes are appreciated. The; ventricles and sulci are symmetric. Angelo-white differentiation is maintained.; There is no evidence for acute intracranial hemorrhage, mass/mass effect,; pathology or infarction. No extra-axial fluid collection. Calvarium is intact.; Paranasal sinuses and mastoid air cells are clear.; ; Impression:; Age related atrophy and microvascular ischemic changes.; No acute intracranial hemorrhage, infarction, or mass/mass effect.; ; ; Signed by; Julius Valdivia MD 03/23/2016 08:50 P; Outcome: 21:43 CT Study completed. cf2 22:30 Discharge Assessment: Patient awake, alert and oriented x 3. No cognitive and/or sls1 functional deficits noted. Patient verbalized understanding of disposition instructions. patient administered narcotics - no. The following High Risk Discharge criteria are identified: None. Discharged to home ambulatory. Condition: stable. Discharge instructions given to patient, Instructed on discharge instructions, follow up and referral plans. Demonstrated understanding of instructions, Pt was receptive of discharge instructions/ teaching. 22:38 Discharge ordered by Provider. br1 23:04 Patient left the ED. sls1 Signatures: Dispatcher [employer] EDMS Jo Ann Umana, Eugenio Devine Brian, MD MD br1 Elisabet Valerio, RN RN sls1 Magdalena Reyes, MICRO LAB ANALYST MICRO LAB ANALYST tmm1 Krista Gongora, MICRO LAB ANALYST MICRO LAB ANALYST ls3 Eugenia Hdz,RN RN cf2 Chart Complete MTDD
== END 2016-03-23 23:04 | disposition home or self-care (01) ==
LOC: M ED 20:06
DX: I10 Essential (primary) hypertension (principal); I25.10 Atherosclerotic heart disease of native coronary artery without angina pectoris; J44.9 Chronic obstructive pulmonary disease, unspecified; K21.9 Gastro-esophageal reflux disease without esophagitis; E78.00 Pure hypercholesterolemia, unspecified; F17.210 Nicotine dependence, cigarettes, uncomplicated; Z79.82 Long term (current) use of aspirin; Z79.51 Long term (current) use of inhaled steroids

== ENCOUNTER 2016-03-24 20:20 | Emergency (ER) | payer MEDICARE, MEDICAID ==
[2016-03-24] MEDS ORDERED: ONDANSETRON 4 MG ORAL DISINTEGRATING TAB (S0181) As Ordered ONE (20:46)
--- NOTE | 2016-03-24 20:54 | EDDOCDS ---
Nurse's Notes [facility] Name: Jacob Otero Age: 50 yrs Sex: Male : 1965 Arrival Date: 03/24/2016 Time: 20:20 Bed TR5 Private MD: Tami Campbell M. Diagnosis: Nausea and vomiting;Cough Presentation: 03/24 20:23 Presenting complaint: Patient states: he was seen here last night and now has a "weird ttb taste in my mouth" and is vomiting today. Denies pain or SOB. States he has not been taking his Nexium and "is usually better with that". Adult Sepsis Screening: The patient does not have new or worsening altered mentation. Patient's respiratory rate is less than 22. Systolic blood pressure is greater than 100. Patient has a qSOFA score of 0- Negative Sepsis Screen. Suicide/Homicide risk assessment- the patient denies having any suicidal and/or homicidal ideations and does not present with any other emotional, behavioral or mental health complaints. Status: Patient is not a center customer service associate or dependent. Transition of care: patient was not received from another setting of care. 20:23 Acuity: ROBINSON Level 3 ttb 20:23 Method Of Arrival: Walkin/Carried/Asstd ttb Triage Assessment: 20:27 General: Appears in no apparent distress, well nourished, Behavior is appropriate for ttb age, cooperative, pleasant. Pain: Denies pain. HIV screening NA for this visit Offered previously. Neurological: Level of Consciousness is awake, alert. Cardiovascular: Chest pain is denied. Respiratory: No deficits noted. Airway is patent Respiratory effort is even, unlabored, Denies cough, shortness of breath. GI: Reports nausea, vomiting. Derm: Skin is normal. Injury Description: No known injury. Historical: - Allergies: no known allergies; - Home Meds: 1. Advair Diskus 250-50 mcg/dose Inhl dsdv 1 puff 2 times per day out (Last dose: Unknown) 2. ProAir HFA 90 mcg/actuation inhalation HFAA 1 puff every 4 hours (Last dose: 03/24/2016 08:00) 3. losartan 25 mg oral tab once daily (Last dose: 03/21/2016) 4. Zocor 40 mg Oral tab 1 tab once daily (Last dose: 03/24/2016 16:00) 5. Nexium 40 mg Oral cpDR 1 cap once daily out (Last dose: Unknown) 6. aspirin 81 mg Oral TbEC 1 tab once daily (Last dose: 03/24/2016 13:00) - PMHx: CAD; COPD; GERD; Hypercholesterolemia; Hypertension; "blockage in left side of heart, they are doing nothing with"; - PSHx: none; - Social history: Smoking status: Patient uses tobacco products, heavy tobacco smoker. Patient uses alcohol occasionally. Patient/guardian denies using street drugs, No barriers to communication noted, The patient speaks fluent Bulgarian, Speaks appropriately for age. - Family history: Not pertinent. - : The pt / caregiver states he / she is not on anticoagulants. Home medication list is obtained from the patient. - Exposure Risk Screening:: None identified. Screenin:22 Infection Control. cmb 20:51 Screening information is obtained from the patient. Fall risk: No risks identified. jf3 Assistance ADL's: requires no assistance with activities of daily living. Abuse/DV Screen: The patient / caregiver reports he/she is: not in a situation that causes fear, pain or injury. Nutritional screening: No deficits noted. Advance Directives: Currently, there is no health care proxy. home support is adequate. Assessment: 20:51 General: Appears in no apparent distress, comfortable, Behavior is cooperative. Pain: jf3 Denies pain. Neurological: Level of Consciousness is awake, alert, Oriented to person, place, time. Cardiovascular: Capillary refill < 3 seconds Chest pain is denied. Respiratory: Airway is patent Respiratory effort is even, unlabored, Respiratory pattern is regular, symmetrical, Denies shortness of breath. Derm: Skin is normal. Vital Signs: 20:21 BP 144 / 94; Pulse 106; Resp 16; Temp 97.1; Pulse Ox 94% ; Weight 87.09 kg; Height 6 cmb ft. 1 in. (185.42 cm); Pain 0/10; 20:51 BP 143 / 96; Pulse 100; Pain 0/10; jf3 20:21 Body Mass Index 25.33 (87.09 kg, 185.42 cm) b Vitals: 20:21 Log In Time: March 24, 2016 at 20:20. b ED Course: 20:21 Patient visited by Eleni Abarca. cmb 20:21 Tami Campbell is Private Physician. cmb 20:21 Patient moved to Waiting cmb 20:22 Patient moved to Pre RCE cmb 20:25 Triage Initiated ttb 20:29 Patient visited by Courtney Yuen RN. ttb 20:29 Patient moved to Triage 2 jf3 20:35 [facility] btw 20:35 Keli Garza MD is Attending Physician. btw 20:35 Patient visited by Adrian Monreal PA. btw 20:43 Tami Campbell is Referral Physician. btw 20:51 Patient moved to TR5 rs6 20:51 The patient / caregiver is instructed regarding the plan of care and ED course. jf3 20:51 No IV's were initiated during this patient's visit. No procedures done that require jf3 assistance. Administered Medications: 20:48 Drug: Ondansetron ODT 4 mg [ondansetron 4 mg disintegrating tablet (1 tabs)] Route: PO; jf3 Order Results: There are currently no results for this order. Outcome: 20:43 Discharge ordered by Provider. btw 20:51 Discharge Assessment: Patient awake, alert and oriented x 3. No cognitive and/or jf3 functional deficits noted. Patient verbalized understanding of disposition instructions. patient administered narcotics - no. The following High Risk Discharge criteria are identified: None. Discharged to home ambulatory, with significant other. Condition: stable. Discharge instructions given to patient, significant other, Instructed on discharge instructions, follow up and referral plans. medication usage, Demonstrated understanding of instructions, medications, Pt was receptive of discharge instructions/ teaching. No special radiology studies were completed. Property :Personal belongings accompany Pt. 20:53 Patient left the ED. jf3 Signatures: Adrian Monreal PA PA btw Eleni Abarca cmb Courtney Yuen, RN RN ttb Marisol Cuellar, [employer]ING [employer] J[employer]ING [employer]ER rs6 Luis Felipe Mcarthur RN RN jf3 Corrections: (The following items were deleted from the chart) 20:28 20:23 Presenting complaint: Patient states: he was seen here last night and now has a ttb "weird taste in my mouth" and is vomiting today. Denies pain or SOB. ttb MTDD
--- NOTE | 2016-03-24 20:54 | EDDOCDS ---
Physician Documentation [facility] Name: Jacob Otero Age: 50 yrs Sex: Male : 1965 Arrival Date: 03/24/2016 Time: 20:20 Bed TR5 Private MD: Tami Campbell M. Disposition: 03/24/16 20:43 Discharged to Home/Self Care. Impression: Nausea and vomiting, Cough. - Condition is Stable. - Discharge Instructions: Nausea and Vomiting, [id number], Cough, Adult, [id number]-[id number]. - Prescriptions for ZOFRAN ODT 4 mg - dissolve 1 tablet by ORAL route 4 times per day As needed do not chew, do not swallow whole; 10 tablet. - Medication Reconciliation, Local Pharmacy Hours form. - Follow up: Tami Campbell; When: Call to arrange an appointment; Reason: Further diagnostic work-up, Recheck today's complaints, Continuance of care. - Problem is an ongoing problem. - Symptoms are unchanged. Historical: - Allergies: no known allergies; - Home Meds: 1. Advair Diskus 250-50 mcg/dose Inhl dsdv 1 puff 2 times per day out (Last dose: Unknown) 2. ProAir HFA 90 mcg/actuation inhalation HFAA 1 puff every 4 hours (Last dose: 03/24/2016 08:00) 3. losartan 25 mg oral tab once daily (Last dose: 03/21/2016) 4. Zocor 40 mg Oral tab 1 tab once daily (Last dose: 03/24/2016 16:00) 5. Nexium 40 mg Oral cpDR 1 cap once daily out (Last dose: Unknown) 6. aspirin 81 mg Oral TbEC 1 tab once daily (Last dose: 03/24/2016 13:00) - PMHx: CAD; COPD; GERD; Hypercholesterolemia; Hypertension; "blockage in left side of heart, they are doing nothing with"; - PSHx: none; - Social history: Smoking status: Patient uses tobacco products, heavy tobacco smoker. Patient uses alcohol occasionally. Patient/guardian denies using street drugs, No barriers to communication noted, The patient speaks fluent Divehi, Speaks appropriately for age. - Family history: Not pertinent. - : The pt / caregiver states he / she is not on anticoagulants. Home medication list is obtained from the patient. - Exposure Risk Screening:: None identified. Vital Signs: 03/24 20:21 BP 144 / 94; Pulse 106; Resp 16; Temp 97.1; Pulse Ox 94% ; Weight 87.09 kg / 192 lbs; cmb Height 6 ft. 1 in. (185.42 cm); Pain 0/10; 20:51 BP 143 / 96; Pulse 100; Pain 0/10; jf3 20:21 Body Mass Index 25.33 (87.09 kg, 185.42 cm) cmb MDM: 20:40 Ondansetron ODT Oral Disintegrating Tablet 4 mg PO once ordered. btw Administered Medications: 20:48 Drug: Ondansetron ODT 4 mg [ondansetron 4 mg disintegrating tablet (1 tabs)] Route: PO; jf3 Signatures: Adrian Monreal PA PA btCourtney Jones RN RN ttb Luis Felipe Mcarthur RN RN jf3 MTDD
--- NOTE | 2016-03-26 21:54 | EDDOCDS ---
Physician Documentation [facility] Name: Jacob Otero Age: 50 yrs Sex: Male : 1965 Arrival Date: 03/24/2016 Time: 20:20 Bed TR5 Private MD: Tami Campbell M. Disposition: 03/24/16 20:43 Discharged to Home/Self Care. Impression: Nausea and vomiting, Cough. - Condition is Stable. - Discharge Instructions: Nausea and Vomiting, Psrp-[id number], Cough, Adult, Xmmd-[id number]. - Prescriptions for ZOFRAN ODT 4 mg - dissolve 1 tablet by ORAL route 4 times per day As needed do not chew, do not swallow whole; 10 tablet. - Medication Reconciliation, Local Pharmacy Hours form. - Follow up: Tami Campbell; When: Call to arrange an appointment; Reason: Further diagnostic work-up, Recheck today's complaints, Continuance of care. - Problem is an ongoing problem. - Symptoms are unchanged. Historical: - Allergies: no known allergies; - Home Meds: 1. Advair Diskus 250-50 mcg/dose Inhl dsdv 1 puff 2 times per day out (Last dose: Unknown) 2. ProAir HFA 90 mcg/actuation inhalation HFAA 1 puff every 4 hours (Last dose: 03/24/2016 08:00) 3. losartan 25 mg oral tab once daily (Last dose: 03/21/2016) 4. Zocor 40 mg Oral tab 1 tab once daily (Last dose: 03/24/2016 16:00) 5. Nexium 40 mg Oral cpDR 1 cap once daily out (Last dose: Unknown) 6. aspirin 81 mg Oral TbEC 1 tab once daily (Last dose: 03/24/2016 13:00) - PMHx: CAD; COPD; GERD; Hypercholesterolemia; Hypertension; "blockage in left side of heart, they are doing nothing with"; - PSHx: none; - Social history: Smoking status: Patient uses tobacco products, heavy tobacco smoker. Patient uses alcohol occasionally. Patient/guardian denies using street drugs, No barriers to communication noted, The patient speaks fluent Lithuanian, Speaks appropriately for age. - Family history: Not pertinent. - : The pt / caregiver states he / she is not on anticoagulants. Home medication list is obtained from the patient. - Exposure Risk Screening:: None identified. Vital Signs: 03/24 20:21 BP 144 / 94; Pulse 106; Resp 16; Temp 97.1; Pulse Ox 94% ; Weight 87.09 kg / 192 lbs; cmb Height 6 ft. 1 in. (185.42 cm); Pain 0/10; 20:51 BP 143 / 96; Pulse 100; Pain 0/10; jf3 20:21 Body Mass Index 25.33 (87.09 kg, 185.42 cm) cmb MDM: 20:40 Ondansetron ODT Oral Disintegrating Tablet 4 mg PO once ordered. btw 20:54 [facility] Payment Agreement was scanned into [employer] and attached to record. b :54 Financial registration complete. b 03/25 09:09 T-Sheet-- Draft Copy was scanned into [employer] and attached to record. gb Administered Medications: 03/24 20:48 Drug: Ondansetron ODT 4 mg [ondansetron 4 mg disintegrating tablet (1 tabs)] Route: PO; jf3 Signatures: Jo Ann Umana, Reg Reg gb Adrian Monreal PA PA btw Courtney Yuen RN RN ttb Luis Felipe Mcarthur,RN RN jfMercy Joe The chart was reviewed and I authenticate all verbal orders and agree with the evaluation and treatment provided.Attachments: 20:54 [facility] Payment Agreement [facility] 03/25 09:09 T-Sheet-- Draft Copy gb Chart Complete MTDD
--- NOTE | 2016-03-26 21:54 | EDDOCDS ---
Physician Documentation [facility] Name: Jacob Otero Age: 50 yrs Sex: Male : 1965 Arrival Date: 03/24/2016 Time: 20:20 Bed TR5 Private MD: Tami Campbell M. Disposition: 03/24/16 20:43 Discharged to Home/Self Care. Impression: Nausea and vomiting, Cough. - Condition is Stable. - Discharge Instructions: Nausea and Vomiting, Dacc-vg-[id number], Cough, Adult, Egaw-[id number]-Ztqo. - Prescriptions for ZOFRAN ODT 4 mg - dissolve 1 tablet by ORAL route 4 times per day As needed do not chew, do not swallow whole; 10 tablet. - Medication Reconciliation, Local Pharmacy Hours form. - Follow up: Tami Campbell; When: Call to arrange an appointment; Reason: Further diagnostic work-up, Recheck today's complaints, Continuance of care. - Problem is an ongoing problem. - Symptoms are unchanged. Historical: - Allergies: no known allergies; - Home Meds: 1. Advair Diskus 250-50 mcg/dose Inhl dsdv 1 puff 2 times per day out (Last dose: Unknown) 2. ProAir HFA 90 mcg/actuation inhalation HFAA 1 puff every 4 hours (Last dose: 03/24/2016 08:00) 3. losartan 25 mg oral tab once daily (Last dose: 03/21/2016) 4. Zocor 40 mg Oral tab 1 tab once daily (Last dose: 03/24/2016 16:00) 5. Nexium 40 mg Oral cpDR 1 cap once daily out (Last dose: Unknown) 6. aspirin 81 mg Oral TbEC 1 tab once daily (Last dose: 03/24/2016 13:00) - PMHx: CAD; COPD; GERD; Hypercholesterolemia; Hypertension; "blockage in left side of heart, they are doing nothing with"; - PSHx: none; - Social history: Smoking status: Patient uses tobacco products, heavy tobacco smoker. Patient uses alcohol occasionally. Patient/guardian denies using street drugs, No barriers to communication noted, The patient speaks fluent Romansh, Speaks appropriately for age. - Family history: Not pertinent. - : The pt / caregiver states he / she is not on anticoagulants. Home medication list is obtained from the patient. - Exposure Risk Screening:: None identified. Vital Signs: 03/24 20:21 BP 144 / 94; Pulse 106; Resp 16; Temp 97.1; Pulse Ox 94% ; Weight 87.09 kg / 192 lbs; cmb Height 6 ft. 1 in. (185.42 cm); Pain 0/10; 20:51 BP 143 / 96; Pulse 100; Pain 0/10; jf3 20:21 Body Mass Index 25.33 (87.09 kg, 185.42 cm) cmb MDM: 20:40 Ondansetron ODT Oral Disintegrating Tablet 4 mg PO once ordered. btw 20:54 [facility] was scanned into [employer] and attached to record. b :54 Financial registration complete. b 03/25 09:09 T-Sheet-- Draft Copy was scanned into [employer] and attached to record. gb Administered Medications: 03/24 20:48 Drug: Ondansetron ODT 4 mg [ondansetron 4 mg disintegrating tablet (1 tabs)] Route: PO; jf3 Signatures: Jo Ann Umana, Reg Reg gb Adrian Monreal PA PA btw Courtney Yuen RN RN ttb Luis Felipe Mcarthur,RN RN jfMercy Joe The chart was reviewed and I authenticate all verbal orders and agree with the evaluation and treatment provided.Attachments: 20:54 [facility] Payment Agreement [facility] 03/25 09:09 T-Sheet-- Draft Copy gb Chart Complete MTDD
--- NOTE | 2016-03-26 21:55 | EDDOCDS ---
Nurse's Notes [facility] Name: Jacob Otero Age: 50 yrs Sex: Male : 1965 Arrival Date: 03/24/2016 Time: 20:20 Bed TR5 Private MD: Tami Campbell M. Diagnosis: Nausea and vomiting;Cough Presentation: 03/24 20:23 Presenting complaint: Patient states: he was seen here last night and now has a "weird ttb taste in my mouth" and is vomiting today. Denies pain or SOB. States he has not been taking his Nexium and "is usually better with that". Adult Sepsis Screening: The patient does not have new or worsening altered mentation. Patient's respiratory rate is less than 22. Systolic blood pressure is greater than 100. Patient has a qSOFA score of 0- Negative Sepsis Screen. Suicide/Homicide risk assessment- the patient denies having any suicidal and/or homicidal ideations and does not present with any other emotional, behavioral or mental health complaints. 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 Transition of care: patient was not received from another setting of care. 20:23 Acuity: ROBINSON Level 3 ttb 20:23 Method Of Arrival: Walkin/Carried/Asstd ttb Triage Assessment: 20:27 General: Appears in no apparent distress, well nourished, Behavior is appropriate for ttb age, cooperative, pleasant. Pain: Denies pain. HIV screening NA for this visit Offered previously. Neurological: Level of Consciousness is awake, alert. Cardiovascular: Chest pain is denied. Respiratory: No deficits noted. Airway is patent Respiratory effort is even, unlabored, Denies cough, shortness of breath. GI: Reports nausea, vomiting. Derm: Skin is normal. Injury Description: No known injury. Historical: - Allergies: no known allergies; - Home Meds: 1. Advair Diskus 250-50 mcg/dose Inhl dsdv 1 puff 2 times per day out (Last dose: Unknown) 2. ProAir HFA 90 mcg/actuation inhalation HFAA 1 puff every 4 hours (Last dose: 03/24/2016 08:00) 3. losartan 25 mg oral tab once daily (Last dose: 03/21/2016) 4. Zocor 40 mg Oral tab 1 tab once daily (Last dose: 03/24/2016 16:00) 5. Nexium 40 mg Oral cpDR 1 cap once daily out (Last dose: Unknown) 6. aspirin 81 mg Oral TbEC 1 tab once daily (Last dose: 03/24/2016 13:00) - PMHx: CAD; COPD; GERD; Hypercholesterolemia; Hypertension; "blockage in left side of heart, they are doing nothing with"; - PSHx: none; - Social history: Smoking status: Patient uses tobacco products, heavy tobacco smoker. Patient uses alcohol occasionally. Patient/guardian denies using street drugs, No barriers to communication noted, The patient speaks fluent Mohawk, Speaks appropriately for age. - Family history: Not pertinent. - : The pt / caregiver states he / she is not on anticoagulants. Home medication list is obtained from the patient. - Exposure Risk Screening:: None identified. Screenin:22 Infection Control. cmb 20:51 Screening information is obtained from the patient. Fall risk: No risks identified. jf3 Assistance ADL's: requires no assistance with activities of daily living. Abuse/DV Screen: The patient / caregiver reports he/she is: not in a situation that causes fear, pain or injury. Nutritional screening: No deficits noted. Advance Directives: Currently, there is no health care proxy. home support is adequate. Assessment: 20:51 General: Appears in no apparent distress, comfortable, Behavior is cooperative. Pain: jf3 Denies pain. Neurological: Level of Consciousness is awake, alert, Oriented to person, place, time. Cardiovascular: Capillary refill < 3 seconds Chest pain is denied. Respiratory: Airway is patent Respiratory effort is even, unlabored, Respiratory pattern is regular, symmetrical, Denies shortness of breath. Derm: Skin is normal. Vital Signs: 20:21 BP 144 / 94; Pulse 106; Resp 16; Temp 97.1; Pulse Ox 94% ; Weight 87.09 kg; Height 6 cmb ft. 1 in. (185.42 cm); Pain 0/10; 20:51 BP 143 / 96; Pulse 100; Pain 0/10; jf3 20:21 Body Mass Index 25.33 (87.09 kg, 185.42 cm) b Vitals: 20:21 Log In Time: March 24, 2016 at 20:20. b ED Course: 20:21 Patient visited by Eleni Abarca. cmb 20:21 Tami Campbell is Private Physician. cmb 20:21 Patient moved to Waiting cmb 20:22 Patient moved to Pre RCE cmb 20:25 Triage Initiated ttb 20:29 Patient visited by Courtney Yuen RN. ttb 20:29 Patient moved to Triage 2 jf3 20:35 Adrian Monreal PA is [facility]. btw 20:35 Keli Garza MD is Attending Physician. btw 20:35 Patient visited by Adrian Monreal PA. btw 20:43 Tami Campbell is Referral Physician. btw 20:51 Patient moved to TR5 rs6 20:51 The patient / caregiver is instructed regarding the plan of care and ED course. jf3 20:51 No IV's were initiated during this patient's visit. No procedures done that require jf3 assistance. 20:54 [facility] Payment Agreement was scanned into [employer] and attached to record. gjb 03/25 09:09 T-Sheet-- Draft Copy was scanned into [employer] and attached to record. gb Administered Medications: 03/24 20:48 Drug: Ondansetron ODT 4 mg [ondansetron 4 mg disintegrating tablet (1 tabs)] Route: PO; jf3 Order Results: There are currently no results for this order. Outcome: 20:43 Discharge ordered by Provider. btw 20:51 Discharge Assessment: Patient awake, alert and oriented x 3. No cognitive and/or jf3 functional deficits noted. Patient verbalized understanding of disposition instructions. patient administered narcotics - no. The following High Risk Discharge criteria are identified: None. Discharged to home ambulatory, with significant other. Condition: stable. Discharge instructions given to patient, significant other, Instructed on discharge instructions, follow up and referral plans. medication usage, Demonstrated understanding of instructions, medications, Pt was receptive of discharge instructions/ teaching. No special radiology studies were completed. Property :Personal belongings accompany Pt. 20:53 Patient left the ED. jf3 Signatures: Jo Ann Umana, Reg Reg gb Adrian Monreal PA PA btw Eleni Abarca cmb Courtney Yuen, RN RN ttb Marisol Cuellar, AUTOMOBILE MECHANIC AUTOMOBILE MECHANIC rs6 Luis Felipe Mcarthur RN RN jf3 Beck, Gabriela gjb Corrections: (The following items were deleted from the chart) 20:28 20:23 Presenting complaint: Patient states: he was seen here last night and now has a ttb "weird taste in my mouth" and is vomiting today. Denies pain or SOB. ttb Chart Complete MTDD
== END 2016-03-24 20:53 | disposition home or self-care (01) ==
LOC: M ED 20:20
DX: R05 Cough (principal); R11.2 Nausea with vomiting, unspecified; I25.10 Atherosclerotic heart disease of native coronary artery without angina pectoris; J44.9 Chronic obstructive pulmonary disease, unspecified; K21.9 Gastro-esophageal reflux disease without esophagitis; E78.00 Pure hypercholesterolemia, unspecified; I10 Essential (primary) hypertension; Z72.0 Tobacco use; Z79.82 Long term (current) use of aspirin; Z79.899 Other long term (current) drug therapy

== ENCOUNTER → 2016-04-03 | Outpatient (CLI) | payer MEDICARE, MEDICAID ==
[2016-04-03 19:47] LABS: ALBUMIN 4.3 GM/DL (3.2-5.2); ALBUMIN/GLOBULIN RATIO 1.34 (1.00-1.93); ALKALINE PHOSPHATASE 85 U/L (45-117); ALT/SGPT 21 U/L (12-78); ANION GAP 6 MEQ/L (8-16); AST/SGOT 9 U/L (15-37); BILIRUBIN,TOTAL 0.4 MG/DL (0.2-1.0); BLOOD UREA NITROGEN 13 MG/DL (7-18); CALCIUM LEVEL 9.4 MG/DL (8.5-10.1); CARBON DIOXIDE LEVEL 32 MEQ/L (21-32); CHLORIDE LEVEL 102 MEQ/L (98-107); CREATININE FOR GFR 1.26 MG/DL (0.70-1.30); GLOMERULAR FILTRATION RATE > 60.0 (>56); GLUCOSE, FASTING 92 MG/DL (70-105); POTASSIUM SERUM 4.5 MEQ/L (3.5-5.1); SODIUM LEVEL 140 MEQ/L (136-145); TOTAL PROTEIN 7.5 GM/DL (6.4-8.2)
[2016-04-03 19:50] LABS: BASO % 0.7 % (0.0-1.0); EOS # 0.1 K/mm3 (0.0-0.50); LARGE UNSTAINED CELL # 0.2 K/mm3 (0.0-0.4); LARGE UNSTAINED CELL % 2.7 % (0.0-4.0); LYMPH # 1.5 K/mm3 (1.5-4.5); LYMPH % 21.3 % (24.0-44.0); MEAN CORPUSCULAR HEMOGLOBIN 32.7 pg (27.0-33.0); MEAN CORPUSCULAR HGB CONC 34.4 g/dl (32.0-36.5); MEAN CORPUSCULAR VOLUME 94.9 fl (80.0-96.0); MONO # 0.8 K/mm3 (0.0-0.8); MONO % 11.6 % (0.0-5.0); NEUTROPHILS # 4.3 K/mm3 (1.8-7.7); NEUTROPHILS % 61.8 % (36.0-66.0); PLATELET COUNT, AUTOMATED 394 k/mm3 (150-450); RED CELL DISTRIBUTION WIDTH 12.3 % (11.5-14.5)
== END | disposition home or self-care (01) ==
LOC: M LAB 15:49
PROVIDERS: ATTEND Physician Assistant
DX: M79.662 Pain in left lower leg (principal)

== ENCOUNTER 2016-04-09 06:41 | Emergency (ER) | payer MEDICAID, MEDICARE ==
[2016-04-09] MEDS ORDERED: ONDANSETRON 4 MG ORAL DISINTEGRATING TAB (S0181) As Ordered ONE (07:26)
--- NOTE | 2016-04-09 07:36 | EDDOCDS ---
Nurse's Notes [facility] Name: Jacob Otero Age: 50 yrs Sex: Male : 1965 Arrival Date: 04/09/2016 Time: 06:41 Bed Triage 1 Private MD: Diagnosis: Nausea with vomiting, unspecified Presentation: 04/09 06:44 Presenting complaint: Patient states: pt states he vomited at approx 23:00 last night mlc and at 01:00 this AM. denies nausea at this time. Adult Sepsis Screening: The patient does not have new or worsening altered mentation. Patient's respiratory rate is less than 22. Systolic blood pressure is greater than 100. Patient has a qSOFA score of 0- Negative Sepsis Screen. Suicide/Homicide risk assessment- the patient denies having any suicidal and/or homicidal ideations and does not present with any other emotional, behavioral or mental health complaints. 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 Transition of care: patient was not received from another setting of care. 06:44 Acuity: ROBINSON Level 4 [facility] 06:44 Method Of Arrival: Amb[place] [facility] Triage Assessment: 06:50 General: Appears in no apparent distress, comfortable, Behavior is cooperative. Pain: mlc Denies pain. HIV screening NA for this visit Offered previously. The patient is triaged at the bedside. See Assessment in Nurses Notes section of ED record. Neurological: Level of Consciousness is awake, alert, Oriented to person, place, time. GI: Denies nausea. Derm: Skin is pink, warm & dry. Historical: - Allergies: No known drug Allergies; - Home Meds: 1. aspirin 81 mg Oral TbEC 1 tab once daily 2. Advair Diskus 250-50 mcg/dose Inhl dsdv 1 puff 2 times per day out 3. Breo Ellipta 200-25 mcg/dose inhalation dsdv 1 puff once daily has not filled since September 14. losartan 25 mg oral tab once daily 5. ProAir HFA 90 mcg/actuation inhalation HFAA 1 puff every 4 hours 6. Zocor 40 mg Oral tab 1 tab once daily 7. Nexium 40 mg Oral cpDR 1 cap once daily out 8. ondansetron HCl 4 mg Oral tab 4 mg as needed - PMHx: COPD; Hypertension; Hypercholesterolemia; GERD; "blockage in left side of heart, they are doing nothing with"; CAD; - PSHx: none; - Social history: Smoking status: Patient uses tobacco products, heavy tobacco smoker. No barriers to communication noted, The patient speaks fluent Belarusian. - Family history: Not pertinent. - : The pt / caregiver states he / she is not on anticoagulants. Home medication list is obtained from the patient, pill bottles. - Exposure Risk Screening:: None identified. Screenin:52 Screening information is obtained from the patient. Fall risk: No risks identified. [facility] Assistance ADL's: Requires assistance with housework, assistance is provided by family members. Abuse/DV Screen: The patient / caregiver reports he/she is: not in a situation that causes fear, pain or injury. Nutritional screening: No deficits noted. Advance Directives: Currently, there is a health care proxy, Clare Phipps, girlfriend. home support is adequate. Assessment: 07:30 General: Appears in no apparent distress, Behavior is appropriate for age, cooperative. srm Neurological: No deficits noted. Cardiovascular: No deficits noted. Respiratory: No deficits noted. GI: Abdomen is non- distended Bowel sounds present X 4 quads. Abd is soft and non tender X 4 quads. Derm: No deficits noted. Vital Signs: 06:50 BP 146 / 98; Pulse 103; Resp 18; Temp 98.2(T); Pulse Ox 96% ; Weight 84.37 kg; Height 6 mlc ft. 1 in. (185.42 cm); Pain 0/10; 06:50 Body Mass Index 24.54 (84.37 kg, 185.42 cm) [facility] Vitals: 06:50 Log In Time: April 09, 2016 at 06:43. [facility] ED Course: 06:43 Patient visited by Aleyda Banerjee Reg. hs2 06:43 Patient moved to Waiting hs2 06:45 Triage Initiated mlc 06:54 Patient visited by Mildred Rain RN. mlc 06:55 Patient moved to Triage 1 mlc 06:56 Charmaine Johns PA-C is PHCP. dt4 06:57 Christina Patel MD is Attending Physician. dt4 06:57 Patient visited by Charmaine Johns PA-C. dt4 07:17 EKG done. (by ED staff). Reviewed by Charmaine Johns PA-C. jrd 07:24 [facility] is Referral Physician. dt4 07:30 The patient / caregiver is instructed regarding the plan of care and ED course. Patient srm has correct armband on for positive identification. 07:30 No IV's were initiated during this patient's visit. No procedures done that require srm assistance. Administered Medications: 07:30 Drug: Ondansetron ODT 4 mg [ondansetron 4 mg disintegrating tablet (1 tabs)] Route: PO; srm Order Results: There are currently no results for this order. Outcome: 07:24 Discharge ordered by Provider. dt4 07:32 Discharge Assessment: Patient awake, alert and oriented x 3. No cognitive and/or srm functional deficits noted. Patient verbalized understanding of disposition instructions. patient administered narcotics - no. The following High Risk Discharge criteria are identified: None. Discharged to home ambulatory. Condition: stable. Discharge instructions given to patient, Instructed on discharge instructions, follow up and referral plans. medication usage, Demonstrated understanding of instructions, medications, Pt was receptive of discharge instructions/ teaching. Prescriptions given X 1. No special radiology studies were completed. Property :Personal belongings accompany Pt. 07:34 Patient left the ED. srm Signatures: Radha Oates, RN RN Mildred Winchester,RN RN Charmaine Garcia, RUKHSANA MILIAN dt4 Manny Agosto, LATASHA LANDSCAPE ENGINEER Aleyda Zapien, Reg Reg hs2 MTDD
--- NOTE | 2016-04-09 07:36 | EDDOCDS ---
Physician Documentation [facility] Name: Jacob Otero Age: 50 yrs Sex: Male : 1965 Arrival Date: 04/09/2016 Time: 06:41 Bed Triage 1 Private MD: Disposition: 04/09/16 07:24 Discharged to Home/Self Care. Impression: Nausea with vomiting, unspecified. - Condition is Stable. - Discharge Instructions: Nausea and Vomiting. - Prescriptions for ZOFRAN ODT 4 mg Oral - dissolve 1 tablet by ORAL route 3-4 times daily As needed do not chew, do not swallow whole; 10 tablet. - Medication Reconciliation, Local Pharmacy Hours form. - Follow up: Emergency Department; When: As needed; Reason: Worsening of conditions. [facility]: [facility]; When: Call to arrange an appointment; Reason: Recheck today's complaints, Continuance of care, To establish care. - Problem is new. - Symptoms are unchanged. Historical: - Allergies: No known drug Allergies; - Home Meds: 1. aspirin 81 mg Oral TbEC 1 tab once daily 2. Advair Diskus 250-50 mcg/dose Inhl dsdv 1 puff 2 times per day out 3. Breo Ellipta 200-25 mcg/dose inhalation dsdv 1 puff once daily has not filled since September 14. losartan 25 mg oral tab once daily 5. ProAir HFA 90 mcg/actuation inhalation HFAA 1 puff every 4 hours 6. Zocor 40 mg Oral tab 1 tab once daily 7. Nexium 40 mg Oral cpDR 1 cap once daily out 8. ondansetron HCl 4 mg Oral tab 4 mg as needed - PMHx: COPD; Hypertension; Hypercholesterolemia; GERD; "blockage in left side of heart, they are doing nothing with"; CAD; - PSHx: none; - Social history: Smoking status: Patient uses tobacco products, heavy tobacco smoker. No barriers to communication noted, The patient speaks fluent Stateless. - Family history: Not pertinent. - : The pt / caregiver states he / she is not on anticoagulants. Home medication list is obtained from the patient, pill bottles. - Exposure Risk Screening:: None identified. Vital Signs: 04/09 06:50 BP 146 / 98; Pulse 103; Resp 18; Temp 98.2(T); Pulse Ox 96% ; Weight 84.37 kg / 186 [facility] lbs; Height 6 ft. 1 in. (185.42 cm); Pain 0/10; 06:50 Body Mass Index 24.54 (84.37 kg, 185.42 cm) [facility] MDM: 06:58 ECG WITH READING ER PHYS+CARDIAG ordered. EDMS 07:24 Ondansetron ODT Oral Disintegrating Tablet 4 mg PO once ordered. dt4 07:32 Financial registration complete. Administered Medications: 07:30 Drug: Ondansetron ODT 4 mg [ondansetron 4 mg disintegrating tablet (1 tabs)] Route: PO; srm Signatures: Dispatcher [employer] EDMS Radha Oates RN RN [facility] Pedro Gavin, Galindo Medley Mildred Rain RN RN [facility] Charmaine Johns, RUKHSANA PAGisell dt4 BALBIR
--- NOTE | 2016-04-09 07:39 | ECGEPIP ---
Stationary ECG Study [facility] - ED Test Date: 2016-04-09 Pat Name: MINH MALDONADO Department: Room: - Gender: M Data Operations Leader: tricia : 1965 Requested By: JANIE Rodríguez PA-C Order Number: [id number] Reading MD: Christina Patel Measurements Intervals [place] Rate: 94 P: 75 ME: 186 QRS: -1 QRSD: 164 T: 130 QT: 364 QTc: 456 Interpretive Statements SINUS RHYTHM LEFT BUNDLE BRANCH BLOCK INCREASED RATE 03/23/16 Electronically Signed On 04-09-2016 7:38:57 EST by Christina Patel
--- NOTE | 2016-04-11 08:36 | EDDOCDS ---
Physician Documentation [facility] Name: Jacob Otero Age: 50 yrs Sex: Male : 1965 Arrival Date: 04/09/2016 Time: 06:41 Bed Triage 1 Private MD: Disposition: 04/09/16 07:24 Discharged to Home/Self Care. Impression: Nausea with vomiting, unspecified. - Condition is Stable. - Discharge Instructions: Nausea and Vomiting. - Prescriptions for ZOFRAN ODT 4 mg Oral - dissolve 1 tablet by ORAL route 3-4 times daily As needed do not chew, do not swallow whole; 10 tablet. - Medication Reconciliation, Local Pharmacy Hours form. - Follow up: Emergency Department; When: As needed; Reason: Worsening of conditions. [facility]: [facility]; When: Call to arrange an appointment; Reason: Recheck today's complaints, Continuance of care, To establish care. - Problem is new. - Symptoms are unchanged. Historical: - Allergies: No known drug Allergies; - Home Meds: 1. aspirin 81 mg Oral TbEC 1 tab once daily 2. Advair Diskus 250-50 mcg/dose Inhl dsdv 1 puff 2 times per day out 3. Breo Ellipta 200-25 mcg/dose inhalation dsdv 1 puff once daily has not filled since September 14. losartan 25 mg oral tab once daily 5. ProAir HFA 90 mcg/actuation inhalation HFAA 1 puff every 4 hours 6. Zocor 40 mg Oral tab 1 tab once daily 7. Nexium 40 mg Oral cpDR 1 cap once daily out 8. ondansetron HCl 4 mg Oral tab 4 mg as needed - PMHx: COPD; Hypertension; Hypercholesterolemia; GERD; "blockage in left side of heart, they are doing nothing with"; CAD; - PSHx: none; - Social history: Smoking status: Patient uses tobacco products, heavy tobacco smoker. No barriers to communication noted, The patient speaks fluent Fijian. - Family history: Not pertinent. - : The pt / caregiver states he / she is not on anticoagulants. Home medication list is obtained from the patient, pill bottles. - Exposure Risk Screening:: None identified. Vital Signs: 04/09 06:50 BP 146 / 98; Pulse 103; Resp 18; Temp 98.2(T); Pulse Ox 96% ; Weight 84.37 kg / 186 [facility] lbs; Height 6 ft. 1 in. (185.42 cm); Pain 0/10; 06:50 Body Mass Index 24.54 (84.37 kg, 185.42 cm) [facility] MDM: 06:58 ECG WITH READING ER PHYS+CARDIAG ordered. EDMS 07:24 Ondansetron ODT Oral Disintegrating Tablet 4 mg PO once ordered. dt4 07:32 Financial registration complete. lg 07:46 [facility] Payment Agreement was scanned into [employer] and attached to record. lg 13:16 T-Sheet-- Draft Copy was scanned into [employer] and attached to record. gb 13:16 ECG/EKG was scanned into [employer] and attached to record. gb Administered Medications: 07:30 Drug: Ondansetron ODT 4 mg [ondansetron 4 mg disintegrating tablet (1 tabs)] Route: PO; srm Signatures: Dispatcher [employer] EDMS Radha Oates RN RN srm Jo Ann Umana, Reg Reg gb Pedro Gavin, Reg Reg lg Mildred Rain RN RN [facility] Charmaine Johns PA-C PA-C dt4 The chart was reviewed and I authenticate all verbal orders and agree with the evaluation and treatment provided.Attachments: 07:46 [facility] Payment Agreement lg 13:16 T-Sheet-- Draft Copy gb 13:16 ECG/EKG Chart Complete MTDD
--- NOTE | 2016-04-11 08:36 | EDDOCDS ---
Physician Documentation [facility] Name: Jacob Otero Age: 50 yrs Sex: Male : 1965 Arrival Date: 04/09/2016 Time: 06:41 Bed Triage 1 Private MD: Disposition: 04/09/16 07:24 Discharged to Home/Self Care. Impression: Nausea with vomiting, unspecified. - Condition is Stable. - Discharge Instructions: Nausea and Vomiting. - Prescriptions for ZOFRAN ODT 4 mg Oral - dissolve 1 tablet by ORAL route 3-4 times daily As needed do not chew, do not swallow whole; 10 tablet. - Medication Reconciliation, Local Pharmacy Hours form. - Follow up: Emergency Department; When: As needed; Reason: Worsening of conditions. [facility]: [facility]; When: Call to arrange an appointment; Reason: Recheck today's complaints, Continuance of care, To establish care. - Problem is new. - Symptoms are unchanged. Historical: - Allergies: No known drug Allergies; - Home Meds: 1. aspirin 81 mg Oral TbEC 1 tab once daily 2. Advair Diskus 250-50 mcg/dose Inhl dsdv 1 puff 2 times per day out 3. Breo Ellipta 200-25 mcg/dose inhalation dsdv 1 puff once daily has not filled since September 14. losartan 25 mg oral tab once daily 5. ProAir HFA 90 mcg/actuation inhalation HFAA 1 puff every 4 hours 6. Zocor 40 mg Oral tab 1 tab once daily 7. Nexium 40 mg Oral cpDR 1 cap once daily out 8. ondansetron HCl 4 mg Oral tab 4 mg as needed - PMHx: COPD; Hypertension; Hypercholesterolemia; GERD; "blockage in left side of heart, they are doing nothing with"; CAD; - PSHx: none; - Social history: Smoking status: Patient uses tobacco products, heavy tobacco smoker. No barriers to communication noted, The patient speaks fluent Czech. - Family history: Not pertinent. - : The pt / caregiver states he / she is not on anticoagulants. Home medication list is obtained from the patient, pill bottles. - Exposure Risk Screening:: None identified. Vital Signs: 04/09 06:50 BP 146 / 98; Pulse 103; Resp 18; Temp 98.2(T); Pulse Ox 96% ; Weight 84.37 kg / 186 [facility] lbs; Height 6 ft. 1 in. (185.42 cm); Pain 0/10; 06:50 Body Mass Index 24.54 (84.37 kg, 185.42 cm) [facility] MDM: 06:58 ECG WITH READING ER PHYS+CARDIAG ordered. EDMS 07:24 Ondansetron ODT Oral Disintegrating Tablet 4 mg PO once ordered. dt4 07:32 Financial registration complete. lg 07:46 [facility] Payment Agreement was scanned into [employer] and attached to record. lg 13:16 T-Sheet-- Draft Copy was scanned into [employer] and attached to record. gb 13:16 ECG/EKG was scanned into [employer] and attached to record. gb Administered Medications: 07:30 Drug: Ondansetron ODT 4 mg [ondansetron 4 mg disintegrating tablet (1 tabs)] Route: PO; srm Signatures: Dispatcher [employer] EDMS Radha Oates RN RN srm Jo Ann Umana, Reg Reg gb Pedro Gavin, Reg Reg lg Mildred Rain RN RN [facility] Charmaine Johns PA-C PA-C dt4 The chart was reviewed and I authenticate all verbal orders and agree with the evaluation and treatment provided.Attachments: 07:46 [facility] Payment Agreement lg 13:16 T-Sheet-- Draft Copy gb 13:16 ECG/EKG Chart Complete MTDD
--- NOTE | 2016-04-11 08:36 | EDDOCDS ---
Nurse's Notes [facility] Name: Minh Otero Age: 50 yrs Sex: Male : 1965 Arrival Date: 04/09/2016 Time: 06:41 Bed Triage 1 Private MD: Diagnosis: Nausea with vomiting, unspecified Presentation: 04/09 06:44 Presenting complaint: Patient states: pt states he vomited at approx 23:00 last night mlc and at 01:00 this AM. denies nausea at this time. Adult Sepsis Screening: The patient does not have new or worsening altered mentation. Patient's respiratory rate is less than 22. Systolic blood pressure is greater than 100. Patient has a qSOFA score of 0- Negative Sepsis Screen. Suicide/Homicide risk assessment- the patient denies having any suicidal and/or homicidal ideations and does not present with any other emotional, behavioral or mental health complaints. Status: Patient is not a business services sales agent or dependent. Transition of care: patient was not received from another setting of care. 06:44 Acuity: [facility] Level 4 [facility] 06:44 Method Of Arrival: Ambulance [facility] Triage Assessment: 06:50 General: Appears in no apparent distress, comfortable, Behavior is cooperative. Pain: mlc Denies pain. HIV screening NA for this visit Offered previously. The patient is triaged at the bedside. See Assessment in Nurses Notes section of ED record. Neurological: Level of Consciousness is awake, alert, Oriented to person, place, time. GI: Denies nausea. Derm: Skin is pink, warm & dry. Historical: - Allergies: No known drug Allergies; - Home Meds: 1. aspirin 81 mg Oral TbEC 1 tab once daily 2. Advair Diskus 250-50 mcg/dose Inhl dsdv 1 puff 2 times per day out 3. Breo Ellipta 200-25 mcg/dose inhalation dsdv 1 puff once daily has not filled since September 14. losartan 25 mg oral tab once daily 5. ProAir HFA 90 mcg/actuation inhalation HFAA 1 puff every 4 hours 6. Zocor 40 mg Oral tab 1 tab once daily 7. Nexium 40 mg Oral cpDR 1 cap once daily out 8. ondansetron HCl 4 mg Oral tab 4 mg as needed - PMHx: COPD; Hypertension; Hypercholesterolemia; GERD; "blockage in left side of heart, they are doing nothing with"; CAD; - PSHx: none; - Social history: Smoking status: Patient uses tobacco products, heavy tobacco smoker. No barriers to communication noted, The patient speaks fluent Yoruba. - Family history: Not pertinent. - : The pt / caregiver states he / she is not on anticoagulants. Home medication list is obtained from the patient, pill bottles. - Exposure Risk Screening:: None identified. Screenin:52 Screening information is obtained from the patient. Fall risk: No risks identified. [facility] Assistance ADL's: Requires assistance with housework, assistance is provided by family members. Abuse/DV Screen: The patient / caregiver reports he/she is: not in a situation that causes fear, pain or injury. Nutritional screening: No deficits noted. Advance Directives: Currently, there is a health care proxy, Clare Phipps, girlfriend. home support is adequate. Assessment: 07:30 General: Appears in no apparent distress, Behavior is appropriate for age, cooperative. srm Neurological: No deficits noted. Cardiovascular: No deficits noted. Respiratory: No deficits noted. GI: Abdomen is non- distended Bowel sounds present X 4 quads. Abd is soft and non tender X 4 quads. Derm: No deficits noted. Vital Signs: 06:50 BP 146 / 98; Pulse 103; Resp 18; Temp 98.2(T); Pulse Ox 96% ; Weight 84.37 kg; Height 6 mlc ft. 1 in. (185.42 cm); Pain 0/10; 06:50 Body Mass Index 24.54 (84.37 kg, 185.42 cm) [facility] Vitals: 06:50 Log In Time: April 09, 2016 at 06:43. [facility] ED Course: 06:43 Patient visited by Aleyda Bnaerjee Reg. hs2 06:43 Patient moved to Waiting hs2 06:45 Triage Initiated mlc 06:54 Patient visited by Mildred Rain RN. mlc 06:55 Patient moved to Triage 1 mlc 06:56 Janie Johns PA-C is PHCP. dt4 06:57 Christina Patel MD is Attending Physician. dt4 06:57 Patient visited by Janie Johns PA-C. dt4 07:17 EKG done. (by ED staff). Reviewed by Janie Johns PA-C. jrd 07:24 [facility] is Referral Physician. dt4 07:30 The patient / caregiver is instructed regarding the plan of care and ED course. Patient srm has correct armband on for positive identification. 07:30 No IV's were initiated during this patient's visit. No procedures done that require srm assistance. 07:46 [facility] Payment Agreement was scanned into [employer] and attached to record. lg 07:53 EKG-ADULT Returned. EDMS 13:16 T-Sheet-- Draft Copy was scanned into [employer] and attached to record. gb 13:16 ECG/EKG was scanned into [employer] and attached to record. gb Administered Medications: 07:30 Drug: Ondansetron ODT 4 mg [ondansetron 4 mg disintegrating tablet (1 tabs)] Route: PO; srm Order Results: Radiology Order: EKG-ADULT Test: EKG-ADULT REASON FOR EXAMINATION: n/v; Stationary ECG Study; [facility] - ED; ; Test Date: 2016-04-09; Pat Name: MINH OTERO Department:; Room: -; Gender: M Pack Master: tricia; : 1965 Requested By: JANIE Rodríguez PA-C; Order Number: [id number] Reading MD: Christina Patel; Measurements; Intervals [place]; Rate: 94 P: 75; VT: 186 QRS: -1; QRSD: 164 T: 130; QT: 364; QTc: 456; Interpretive Statements; SINUS RHYTHM; LEFT BUNDLE BRANCH BLOCK; INCREASED RATE 03/23/16; Electronically Signed On 04-09-2016 7:38:57 EST by Christina Patel; Outcome: 07:24 Discharge ordered by Provider. dt4 07:32 Discharge Assessment: Patient awake, alert and oriented x 3. No cognitive and/or srm functional deficits noted. Patient verbalized understanding of disposition instructions. patient administered narcotics - no. The following High Risk Discharge criteria are identified: None. Discharged to home ambulatory. Condition: stable. Discharge instructions given to patient, Instructed on discharge instructions, follow up and referral plans. medication usage, Demonstrated understanding of instructions, medications, Pt was receptive of discharge instructions/ teaching. Prescriptions given X 1. No special radiology studies were completed. Property :Personal belongings accompany Pt. 07:34 Patient left the ED. srm Signatures: Dispatcher [employer] EDMS Radha Oates, RN RN srm Jo Ann Umana, Reg Reg gb Pedro Gavin, Reg Reg lg Mildred Rain,SANTI RN [facility] Janie Johns, PA-C PA-C dt4 Manny Agosto, VEGETABLE GRADER VEGETABLE GRADER jrd Aleyda Banerjee, Reg Reg hs2 Chart Complete MTDD
== END 2016-04-09 07:34 | disposition home or self-care (01) ==
LOC: M ED 06:41
DX: R11.2 Nausea with vomiting, unspecified (principal); R94.31 Abnormal electrocardiogram [ECG] [EKG]; J44.9 Chronic obstructive pulmonary disease, unspecified; I10 Essential (primary) hypertension; E78.00 Pure hypercholesterolemia, unspecified; K21.9 Gastro-esophageal reflux disease without esophagitis; I25.10 Atherosclerotic heart disease of native coronary artery without angina pectoris; Z72.0 Tobacco use; Z79.82 Long term (current) use of aspirin; Z79.899 Other long term (current) drug therapy

== ENCOUNTER → 2016-04-15 | Outpatient (REF) | payer MEDICARE ==
[2016-04-15 13:27] LABS: ALBUMIN 3.9 GM/DL (3.2-5.2); ALBUMIN/GLOBULIN RATIO 1.22 (1.00-1.93); ALKALINE PHOSPHATASE 70 U/L (45-117); ALT/SGPT 22 U/L (12-78); AMYLASE 93 U/L (25-115); ANION GAP 9 MEQ/L (8-16); AST/SGOT 11 U/L (15-37); BILIRUBIN,TOTAL 0.4 MG/DL (0.2-1.0); BLOOD UREA NITROGEN 11 MG/DL (7-18); CARBON DIOXIDE LEVEL 27 MEQ/L (21-32); CHLORIDE LEVEL 103 MEQ/L (98-107); CREATININE FOR GFR 1.13 MG/DL (0.70-1.30); GLOMERULAR FILTRATION RATE > 60.0 (>56); GLUCOSE, FASTING 93 MG/DL (70-105); SODIUM LEVEL 139 MEQ/L (136-145); TOTAL PROTEIN 7.1 GM/DL (6.4-8.2)
[2016-04-15 13:51] LABS: BASO % 0.4 % (0.0-1.0); EOS % 0.6 % (0.0-3.0); LARGE UNSTAINED CELL # 0.1 K/mm3 (0.0-0.4); LARGE UNSTAINED CELL % 1.5 % (0.0-4.0); LYMPH # 1.3 K/mm3 (1.5-4.5); LYMPH % 14.2 % (24.0-44.0); MEAN CORPUSCULAR HEMOGLOBIN 31.6 pg (27.0-33.0); MEAN CORPUSCULAR HGB CONC 33.7 g/dl (32.0-36.5); MONO # 0.8 K/mm3 (0.0-0.8); MONO % 8.7 % (0.0-5.0); NEUTROPHILS # 6.6 K/mm3 (1.8-7.7); NEUTROPHILS % 74.7 % (36.0-66.0); PLATELET COUNT, AUTOMATED 388 k/mm3 (150-450); RED CELL DISTRIBUTION WIDTH 12.3 % (11.5-14.5); WHITE BLOOD COUNT 8.8 K/mm3 (4.0-10.0)
== END ==
LOC: M SFHCPLAZ 09:04
PROVIDERS: ATTEND Nurse Practitioner Family
DX: R11.2 Nausea with vomiting, unspecified (principal)
CPT/HCPCS: 80053; 82150; 83690; 85025; G0463

== ENCOUNTER 2016-05-29 22:36 | Emergency (ER) | payer MEDICARE, OTHER ==
[~2016-05-29] VITALS: Ht 185.4 cm; Wt 84.4 kg
[2016-05-29] MEDS ORDERED: SPIR1AER IN (22:49)
[2016-05-30 00:36] VITALS: BP 180/105
== END 2016-05-30 00:41 | disposition home or self-care (01) ==
LOC: M ED 23:45
DX: M25.562 Pain in left knee (principal)

== ENCOUNTER → 2016-06-02 | Outpatient (CLI) | payer OTHER ==
[~2016-06-02] MED LIST changes: +SPIR1AER IN
--- NOTE | 2016-06-02 16:01 | REP ---
LEFT KNEE, FIVE VIEWS: HISTORY: Pain. There is no acute fracture or dislocation. There is narrowing of the medial knee joint space. An osteophyte is present on the patella. IMPRESSION: Degenerative change as described above. Signed by Christopher Knight MD 06/02/2016 04:03 P
== END ==
LOC: M RAD 15:02
PROVIDERS: ATTEND Nurse Practitioner Family
DX: M25.562 Pain in left knee (principal); M25.762 Osteophyte, left knee

== ENCOUNTER → 2016-06-17 | Outpatient (REF) | payer MEDICARE, MEDICAID ==
[2016-06-17 15:51] LABS: ALBUMIN/GLOBULIN RATIO 1.38 (1.00-1.93); ALKALINE PHOSPHATASE 79 U/L (45-117); ALT/SGPT 21 U/L (12-78); ANION GAP 6 MEQ/L (8-16); AST/SGOT 12 U/L (15-37); BILIRUBIN,TOTAL 0.4 MG/DL (0.2-1.0); BLOOD UREA NITROGEN 15 MG/DL (7-18); CALCIUM LEVEL 9.2 MG/DL (8.5-10.1); CARBON DIOXIDE LEVEL 30 MEQ/L (21-32); CHLORIDE LEVEL 103 MEQ/L (98-107); CREATININE FOR GFR 1.13 MG/DL (0.70-1.30); GLOMERULAR FILTRATION RATE > 60.0 (>56); GLUCOSE, FASTING 89 MG/DL (70-105); POTASSIUM SERUM 4.4 MEQ/L (3.5-5.1); SODIUM LEVEL 139 MEQ/L (136-145); TOTAL PROTEIN 6.9 GM/DL (6.4-8.2)
== END ==
LOC: M SFHCPLAZ 13:37
PROVIDERS: ATTEND Nurse Practitioner Family
DX: I10 Essential (primary) hypertension (principal)
CPT/HCPCS: 36415; 80053; G0463

== ENCOUNTER → 2016-12-13 | Outpatient (REF) | payer MEDICARE, MEDICAID ==
[~2016-12-13] MED LIST changes: -PROA1AER INH; +PROAAER10 INH
[2016-12-13 13:55] LABS: ALBUMIN 4.3 GM/DL (3.2-5.2); ALKALINE PHOSPHATASE 82 U/L (45-117); ALT/SGPT 25 U/L (12-78); ANION GAP 7 MEQ/L (8-16); AST/SGOT 13 U/L (15-37); BILIRUBIN,TOTAL 0.5 MG/DL (0.2-1.0); BLOOD UREA NITROGEN 15 MG/DL (7-18); CALCIUM LEVEL 9.3 MG/DL (8.5-10.1); CARBON DIOXIDE LEVEL 30 MEQ/L (21-32); CHLORIDE LEVEL 102 MEQ/L (98-107); CHOLESTEROL LEVEL 188 MG/DL (<200); GLOMERULAR FILTRATION RATE > 60.0 (>56); GLUCOSE, FASTING 86 MG/DL (70-105); POTASSIUM SERUM 4.3 MEQ/L (3.5-5.1); SODIUM LEVEL 139 MEQ/L (136-145); TOTAL PROTEIN 7.6 GM/DL (6.4-8.2); TRIGLYCERIDES LEVEL 103 MG/DL (<150)
== END ==
LOC: M SFHCPLAZ 11:04
PROVIDERS: ATTEND Nurse Practitioner Family
DX: E78.5 Hyperlipidemia, unspecified (principal); I10 Essential (primary) hypertension
CPT/HCPCS: 80053; 80061; G0463

== ENCOUNTER → 2018-01-16 | Outpatient (REF) | payer MEDICARE, MEDICAID ==
[2018-01-16 18:25] LABS: ALBUMIN 4.1 GM/DL (3.2-5.2); ALBUMIN/GLOBULIN RATIO 1.32 (1.00-1.93); ALKALINE PHOSPHATASE 79 U/L (45-117); ALT/SGPT 27 U/L (12-78); ANION GAP 6 MEQ/L (8-16); AST/SGOT 18 U/L (7-37); BILIRUBIN,TOTAL 0.3 MG/DL (0.2-1.0); BLOOD UREA NITROGEN 11 MG/DL (7-18); CARBON DIOXIDE LEVEL 34 MEQ/L (21-32); CHLORIDE LEVEL 99 MEQ/L (98-107); CHOLESTEROL LEVEL 214 MG/DL (<200); CHOLESTEROL RISK RATIO 5.944 (<5); CREATININE FOR GFR 1.03 MG/DL (0.70-1.30); FREE T4 0.93 NG/DL (0.76-1.46); GLOMERULAR FILTRATION RATE > 60.0 (>56); GLUCOSE, FASTING 77 MG/DL (70-100); HDL CHOLESTEROL 36 MG/DL (>40); LDL CHOLESTEROL 127 MG/DL (<100); NON-HDL-C 178 MG/DL; POTASSIUM SERUM 4.5 MEQ/L (3.5-5.1); SODIUM LEVEL 139 MEQ/L (136-145); TOTAL PROTEIN 7.2 GM/DL (6.4-8.2); TRIGLYCERIDES LEVEL 256 MG/DL (<150)
[2018-01-16 18:36] LABS: MALB URINE SIEMENS 32.4 MG/L
[2018-01-16 18:46] LABS: MAU/CREAT RATIO 31.5 MCG/MG (0.0-30.0)
== END ==
LOC: M SFHCPLAZ 14:47
DX: E78.5 Hyperlipidemia, unspecified (principal); I10 Essential (primary) hypertension; Z23 Encounter for immunization
CPT/HCPCS: 84443

== ENCOUNTER → 2018-02-23 | Outpatient (REF) | payer MEDICARE, MEDICAID ==
[~2018-02-23] MED LIST changes: +LOSA25TA14 PO; -LOSA25TA8 PO; -ZOFR20TA PO; +ZOFR4TAB16 PO
== END ==
LOC: M LAB REF 11:50
PROVIDERS: ATTEND Dermatology
DX: C44.319 Basal cell carcinoma of skin of other parts of face (principal); D22.5 Melanocytic nevi of trunk; L57.0 Actinic keratosis

== ENCOUNTER → 2018-03-31 | Outpatient (REF) | payer MEDICARE, MEDICAID | LOC: M SFHCPLAZ 17:13 | PROVIDERS: ATTEND Dermatology | DX: L91.8 Other hypertrophic disorders of the skin (principal) ==

== ENCOUNTER → 2018-04-21 | Outpatient (REF) | payer MEDICARE, MEDICAID ==
[2018-04-21 16:01] LABS: BASO # 0.1 10^3/uL (0.0-0.2); BASO % 0.8 % (0.0-1.0); EOS # 0.2 10^3/uL (0.0-0.50); HEMATOCRIT 49.6 % (42.0-52.0); HEMOGLOBIN 16.5 g/dl (13.5-17.5); LYMPH % 24.6 % (24.0-44.0); MEAN CORPUSCULAR HEMOGLOBIN 30.9 pg (27.0-33.0); MEAN CORPUSCULAR HGB CONC 33.3 g/dl (32.0-36.5); MEAN CORPUSCULAR VOLUME 92.9 fl (80.0-96.0); MONO # 1.2 10^3/uL (0.0-0.8); MONO % 14.9 % (0.0-5.0); NEUTROPHILS # 4.6 10^3/uL (1.8-7.7); NEUTROPHILS % 57.4 % (36.0-66.0); PLATELET COUNT, AUTOMATED 330 10^3/uL (150-450); RED BLOOD COUNT 5.34 10^6/uL (4.30-6.10)
[2018-04-21 16:30] LABS: ALBUMIN 3.8 GM/DL (3.2-5.2); ALT/SGPT 32 U/L (12-78); BILIRUBIN,TOTAL 0.3 MG/DL (0.2-1.0); BLOOD UREA NITROGEN 12 MG/DL (7-18); CALCIUM LEVEL 8.4 MG/DL (8.5-10.1); CARBON DIOXIDE LEVEL 28 MEQ/L (21-32); CHLORIDE LEVEL 103 MEQ/L (98-107); GLOMERULAR FILTRATION RATE > 60.0 (>56); GLUCOSE, FASTING 85 MG/DL (70-100); POTASSIUM SERUM 4.2 MEQ/L (3.5-5.1); SODIUM LEVEL 137 MEQ/L (136-145)
== END ==
LOC: M SFHCPLAZ 14:34
PROVIDERS: ATTEND Physician Assistant Medical
DX: J44.9 Chronic obstructive pulmonary disease, unspecified (principal)
CPT/HCPCS: 36415; 80053; 85025; G0463

== ENCOUNTER → 2018-06-14 | Outpatient (CLI) | payer MEDICARE, MEDICAID ==
--- NOTE | 2018-06-14 14:39 | REP ---
Clinical: Lung screening. History smoking. Comparison: 11/22/2007 Technique: Axial low-dose noncontrast images from the thoracic inlet to the upper abdomen using lung screening technique. Findings: The lung mandujano are well-aerated. Stable chronic bilateral scarring remains unchanged compared to 2008. No consolidation, significant nodule or mass lesion is appreciated. No pleural effusion/reaction or pneumothorax. Tracheobronchial tree is patent. Mediastinum demonstrates mild atherosclerotic changes of the coronary arteries without cardiomegaly. Impression: Lung-RADS category I. No nodule or suspicious abnormality. Mild chronic changes remain stable compared to 2008. Management recommendations include annual low-dose reevaluation/follow-up. Electronically Signed by Julius Valdivia MD 06/14/2018 02:30 P
== END ==
LOC: M RAD 12:45
PROVIDERS: ATTEND Nurse Practitioner Family
DX: F17.210 Nicotine dependence, cigarettes, uncomplicated (principal)

== ENCOUNTER → 2018-07-11 | Outpatient (REF) | payer MEDICARE, MEDICAID | LOC: M LAB REF 17:50 | PROVIDERS: ATTEND Podiatrist Foot & Ankle Surgery | DX: B07.9 Viral wart, unspecified (principal) ==

== ENCOUNTER → 2018-08-17 | Outpatient (REF) | payer MEDICARE, MEDICAID ==
[2018-08-17 11:48] LABS: ALBUMIN 3.4 GM/DL (3.2-5.2); ALT/SGPT 24 U/L (12-78); BILIRUBIN,TOTAL 0.2 MG/DL (0.2-1.0); BLOOD UREA NITROGEN 16 MG/DL (7-18); CALCIUM LEVEL 8.4 MG/DL (8.5-10.1); CARBON DIOXIDE LEVEL 28 MEQ/L (21-32); CHLORIDE LEVEL 106 MEQ/L (98-107); CHOLESTEROL LEVEL 159 MG/DL (<200); CHOLESTEROL RISK RATIO 4.076 (<5); CREATININE FOR GFR 1.09 MG/DL (0.70-1.30); GLOMERULAR FILTRATION RATE > 60.0 (>56); GLUCOSE, FASTING 99 MG/DL (70-100); HDL CHOLESTEROL 39 MG/DL (>40); LDL CHOLESTEROL 103 MG/DL (<100); NON-HDL-C 120 MG/DL; POTASSIUM SERUM 4.4 MEQ/L (3.5-5.1); SODIUM LEVEL 140 MEQ/L (136-145); TOTAL PROTEIN 6.7 GM/DL (6.4-8.2); TRIGLYCERIDES LEVEL 84 MG/DL (<150)
== END ==
LOC: M SFHCPLAZ 08:14
PROVIDERS: ATTEND Nurse Practitioner Family
DX: I10 Essential (primary) hypertension (principal); E78.5 Hyperlipidemia, unspecified

== ENCOUNTER → 2018-10-26 | Outpatient (REF) | payer MEDICARE, MEDICAID ==
[~2018-10-26] MED LIST changes: -SIMV40TA2 PO; +SIMV40TA20 PO
[2018-10-26 13:53] LABS: BLOOD UREA NITROGEN 13 MG/DL (7-18); CALCIUM LEVEL 8.7 MG/DL (8.5-10.1); CARBON DIOXIDE LEVEL 28 MEQ/L (21-32); CHLORIDE LEVEL 103 MEQ/L (98-107); GLOMERULAR FILTRATION RATE > 60.0 (>56); GLUCOSE, FASTING 74 MG/DL (70-100); POTASSIUM SERUM 4.5 MEQ/L (3.5-5.1); SODIUM LEVEL 138 MEQ/L (136-145)
== END ==
LOC: M LABDRAWP 11:18
PROVIDERS: ATTEND Physician Assistant
DX: R07.9 Chest pain, unspecified (principal); I10 Essential (primary) hypertension

== ENCOUNTER → 2019-01-29 | Outpatient (REF) | payer MEDICARE, MEDICAID ==
[~2019-01-29] MED LIST changes: +SIMV40TA2 PO; -SIMV40TA20 PO
== END ==
LOC: M LAB REF 10:26
PROVIDERS: ATTEND Dermatology
DX: L57.8 Other skin changes due to chronic exposure to nonionizing radiation (principal)

== ENCOUNTER → 2019-02-16 | Outpatient (REF) | payer MEDICARE, MEDICAID ==
[~2019-02-16] MED LIST changes: -SIMV40TA2 PO; +SIMV40TA20 PO
[2019-02-16 15:38] LABS: CHOLESTEROL RISK RATIO 3.926 (<5); FREE T4 0.95 NG/DL (0.76-1.46); THYROID STIMULATING HORMONE 1.53 uIU/ML (0.358-3.740)
[2019-02-16 15:44] LABS: TOTAL 25(OH) VITAMIN D 16.9 NG/ML (30.0-100.0)
== END ==
LOC: M LAB REF 13:06
PROVIDERS: ATTEND Nurse Practitioner Family
DX: Z13.9 Encounter for screening, unspecified (principal); E07.9 Disorder of thyroid, unspecified; E78.00 Pure hypercholesterolemia, unspecified; Z12.5 Encounter for screening for malignant neoplasm of prostate
CPT/HCPCS: 80061; 82306; 84439; 84443; G0103

== ENCOUNTER → 2019-02-21 | Outpatient (REF) | payer MEDICARE, MEDICAID ==
[2019-02-21 18:11] LABS: BASO # 0.1 10^3/uL (0.0-0.2); BASO % 0.9 % (0.0-1.0); EOS # 0.1 10^3/uL (0.0-0.5); EOS % 1.7 % (0.0-3.0); HEMATOCRIT 55.7 % (42.0-52.0); HEMOGLOBIN 17.9 g/dl (13.5-17.5); LYMPH # 1.9 10^3/uL (1.5-5.0); LYMPH % 26.3 % (24.0-44.0); MEAN CORPUSCULAR HEMOGLOBIN 30.4 pg (27.0-33.0); MEAN CORPUSCULAR HGB CONC 32.1 g/dl (32.0-36.5); MEAN CORPUSCULAR VOLUME 94.6 fl (80.0-96.0); MONO # 0.8 10^3/uL (0.0-0.8); MONO % 11.4 % (0.0-5.0); NEUTROPHILS # 4.2 10^3/uL (1.5-8.5); NEUTROPHILS % 59.1 % (36.0-66.0); PLATELET COUNT, AUTOMATED 366 10^3/uL (150-450); RED BLOOD COUNT 5.89 10^6/uL (4.30-6.10)
[2019-02-21 22:49] LABS: ALBUMIN 4.1 GM/DL (3.2-5.2); ALT/SGPT 26 U/L (12-78); BILIRUBIN,TOTAL 0.4 MG/DL (0.2-1.0); BLOOD UREA NITROGEN 15 MG/DL (7-18); CALCIUM LEVEL 9.2 MG/DL (8.5-10.1); CARBON DIOXIDE LEVEL 30 MEQ/L (21-32); CHLORIDE LEVEL 104 MEQ/L (98-107); CREATININE FOR GFR 1.08 MG/DL (0.70-1.30); GLOMERULAR FILTRATION RATE > 60.0 (>56); GLUCOSE, FASTING 96 MG/DL (70-100); POTASSIUM SERUM 4.7 MEQ/L (3.5-5.1); SODIUM LEVEL 138 MEQ/L (136-145); TOTAL PROTEIN 7.8 GM/DL (6.4-8.2)
[2019-02-22 03:18] LABS: HEMOGLOBIN A1c 6.1 %
== END ==
LOC: M LAB REF 16:23
PROVIDERS: ATTEND Nurse Practitioner Family
DX: Z13.9 Encounter for screening, unspecified (principal); I10 Essential (primary) hypertension

== ENCOUNTER → 2019-02-28 | Outpatient (REF) | payer MEDICARE, MEDICAID ==
[2019-02-28 18:07] LABS: APPEARANCE, URINE TURBID (CLEAR); BACTERIA, URINE AUTO 3+ (NEGATIVE); BILIRUBIN, URINE AUTO NEGATIVE (NEGATIVE); BLOOD, URINE BLOOD 1+ (NEGATIVE); COLOR, URINE AMBER (YELLOW); GLUCOSE, URINE (UA) AUTO NEGATIVE (NEGATIVE); KETONE, URINE AUTO NEGATIVE (NEGATIVE); LEUKOCYTE ESTERASE, URINE AUTO NEGATIVE (NEGATIVE); MUCUS, URINE SMALL (NEGATIVE); NITRITE, URINE AUTO NEGATIVE (NEGATIVE); PROTEIN, URINE AUTO 1+ mg/dL (NEGATIVE); RBC, URINE AUTO 2 /HPF (0-3); SPECIFIC GRAVITY URINE AUTO 1.026 (1.002-1.035); SQUAMOUS EPITHELIAL CELL UR AU 0 /HPF (0-6); UROBILINOGEN, URINE AUTO 0.2 mg/dL (0.0-2.0); WBC, URINE AUTO 4 /HPF (0-3)
== END ==
LOC: M LAB REF 17:06
PROVIDERS: ATTEND Nurse Practitioner Family
DX: I10 Essential (primary) hypertension (principal); Z13.9 Encounter for screening, unspecified

== ENCOUNTER → 2019-11-01 | Outpatient (CLI) | payer MEDICARE, MEDICAID ==
--- NOTE | 2019-11-09 11:50 | REP ---
LOW DOSE LUNG SCREENING CT OF CHEST Delay ion reporting results from [employer] computer malfunction as a result of malware. DATE: 11/01/2019 COMPARISON: Low-dose lung CT dated 06/14/2018; chest CT with contrast dated 08/11/2007; and abdominal CT dated 01/03/2009. TECHNIQUE: The study is performed without IV contrast. Images are presented at lung windowing only. FINDINGS: There are no lung nodules or masses. This is unchanged. There are stable zones of curvilinear scarring bilaterally, unchanged. There are no infiltrates or pleural effusions. On the chest CT dated 08/11/2007, there was a 2 cm right adrenal nodule. This was unchanged on the abdomen/pelvis CT dated 01/03/2009. On the current study performed at lung windowing only, this nodule is faintly visible in the upper abdomen and measures approximately 1.9 cm. There has been no significant interval size enlargement. These findings are consistent with a stable left adrenal nodule, likely a benign adenoma. IMPRESSION: Category 1 low-dose lung screening CT of the chest. Probability of malignancy is less than 1%. Depending on risk factors, consider annual followup low-dose lung screening CT. There is a stable right adrenal nodule as discussed in detail above, compatible with a benign adenoma. MTDD
== END ==
LOC: M RAD 09:11
PROVIDERS: ATTEND Internal Medicine Pulmonary Disease
DX: F17.218 Nicotine dependence, cigarettes, with other nicotine-induced disorders (principal); E27.9 Disorder of adrenal gland, unspecified

== ENCOUNTER → 2020-01-30 | Outpatient (REF) | payer MEDICARE, MEDICAID ==
[2020-01-30 13:32] LABS: HEMOGLOBIN 17.1 g/dl (13.5-17.5); MEAN CORPUSCULAR HEMOGLOBIN 30.5 pg (27.0-33.0); MEAN CORPUSCULAR HGB CONC 32.3 g/dl (32.0-36.5); MEAN CORPUSCULAR VOLUME 94.5 fl (80.0-96.0); PLATELET COUNT, AUTOMATED 360 10^3/uL (150-450); RED BLOOD COUNT 5.61 10^6/uL (4.30-6.10); WHITE BLOOD COUNT 6.6 10^3/uL (4.0-10.0)
[2020-01-30 14:01] LABS: ALBUMIN 3.8 GM/DL (3.2-5.2); ALT/SGPT 23 U/L (12-78); BILIRUBIN,TOTAL 0.4 MG/DL (0.2-1.0); BLOOD UREA NITROGEN 14 MG/DL (7-18); CALCIUM LEVEL 8.9 MG/DL (8.5-10.1); CARBON DIOXIDE LEVEL 31 MEQ/L (21-32); CHLORIDE LEVEL 103 MEQ/L (98-107); CHOLESTEROL LEVEL 175 MG/DL (<200); CHOLESTEROL RISK RATIO 4.069 (<5); CREATININE FOR GFR 1.13 MG/DL (0.70-1.30); GLOMERULAR FILTRATION RATE > 60.0 (>56); GLUCOSE, FASTING 85 MG/DL (70-100); HDL CHOLESTEROL 43 MG/DL (>40); LDL CHOLESTEROL 114 MG/DL (<100); NON-HDL-C 132 MG/DL; POTASSIUM SERUM 4.7 MEQ/L (3.5-5.1); SODIUM LEVEL 139 MEQ/L (136-145); TRIGLYCERIDES LEVEL 92 MG/DL (<150)
[2020-01-30 14:20] LABS: TOTAL 25(OH) VITAMIN D 15.6 NG/ML (30.0-100.0)
[2020-01-30 14:39] LABS: HEMOGLOBIN A1c 5.8 %
== END ==
LOC: M PLALAB 09:28
PROVIDERS: ATTEND Physician Assistant
DX: Z00.00 Encounter for general adult medical examination without abnormal findings (principal); Z12.5 Encounter for screening for malignant neoplasm of prostate; J44.9 Chronic obstructive pulmonary disease, unspecified; E78.5 Hyperlipidemia, unspecified; I10 Essential (primary) hypertension; Z79.899 Other long term (current) drug therapy
CPT/HCPCS: 36415; 80053; 80061; 82306; 83036; 85027; G0103

== ENCOUNTER → 2020-01-31 | Outpatient (REF) | payer MEDICARE, MEDICAID | LOC: M LAB REF 13:40 | PROVIDERS: ATTEND Dermatology | DX: L57.0 Actinic keratosis (principal); L57.8 Other skin changes due to chronic exposure to nonionizing radiation | CPT/HCPCS: 11102; 11103; 17000; 88305; G0463 ==

== ENCOUNTER → 2020-03-16 | Outpatient (CLI) | payer MEDICARE, MEDICAID ==
[~2020-03-16] MED LIST changes: +ALBU83IN INH; +ASPI-569 PO; -ASPI81TAEC PO; +FAMO40TA3 PO; -LISI-542 PO; +LISI-898 PO
== END ==
LOC: M LABSMTC 08:00
PROVIDERS: ATTEND Anesthesiology
DX: Z01.812 Encounter for preprocedural laboratory examination (principal); Z20.822 Contact with and (suspected) exposure to COVID-19

== ENCOUNTER 2020-03-21 08:57 | Day surgery (SDC) | payer MEDICARE, MEDICAID ==
[~2020-03-21] VITALS: Ht 185.4 cm; Wt 92.5 kg
[~2020-03-21 08:57] MED LIST changes: -ASPI-569 PO; +ASPI81TAEC PO; +LIDOCAINE 2% 100MG/5ML SDV (FOR ANES.) As Ordered ONE; +LISI-542 PO; -LISI-898 PO; +NS 1,000 ML IV ONE; +fentaNYL 100 MCG/2 ML INJECTION (J3010) As Ordered ONE; +propofoL 500 MG/50 ML VIAL As Ordered ONE
[2020-03-21] MEDS ORDERED: PHENYLephrine HCL 500 MCG/5 ML (100MCG/ML) SYRINGE (J2370) As Ordered ONE (11:03)
--- NOTE | 2020-03-21 11:07 | ROOR ---
Patient Name: Jacob Otero Procedure Date: 03/21/2020 10:47 AM Date of : 1965 Age: 54 Room: [facility] Gender: Male Note Status: Finalized Procedure: Upper Endoscopy + Biopsies Indications: Heartburn, Exclusion of Beltran's esophagus Providers: Rainer Kilgore MD Referring MD: Carol Butcher Requestliliya Provider: Medicines: Monitored Anesthesia Care Complications: No immediate complications. Procedure: Pre-Anesthesia Assessment: - The heart rate, respiratory rate, oxygen saturations, blood pressure, adequacy of pulmonary ventilation, and response to care were monitored throughout the procedure. The Endoscope was introduced through the mouth, and advanced to the second part of duodenum. The upper GI endoscopy was accomplished without difficulty. The patient tolerated the procedure well. Findings: Esophagitis with bleeding was found 38 cm from the incisors. Biopsies were taken with a cold forceps for histology. No other significant abnormalities were identified in a careful examination of the stomach. Biopsies were taken with a cold forceps in the gastric antrum for Helicobacter pylori testing. Multiple localized erosions without bleeding were found in the duodenal bulb and in the first portion of the duodenum. The exam was otherwise without abnormality. Impression: - Reflux esophagitis. Rule out Beltran's esophagus. Biopsied. - Erosive duodenopathy without bleeding. - The examination was otherwise normal. - Biopsies were taken with a cold forceps for Helicobacter pylori testing. - The examination was otherwise normal. Recommendation: - Patient has a contact number available for emergencies. The signs and symptoms of potential delayed complications were discussed with the patient. Return to normal activities tomorrow. Written discharge instructions were provided to the patient. - High fiber diet. - Discharge patient to home. - Follow an antireflux regimen. - Use Prilosec (omeprazole) 40 mg PO BID. - Await pathology results. - Telephone GI clinic for pathology results in 1 week. - Return to referring physician. - The findings and recommendations were discussed with the patient. Procedure Code(s): --- Professional --- 10437, Esophagogastroduodenoscopy, flexible, transoral; with biopsy, single or multiple Diagnosis Code(s): --- Professional --- K21.0, Gastro-esophageal reflux disease with esophagitis K31.89, Other diseases of stomach and duodenum R12, Heartburn CPT copyright 2019 [employer]. All rights reserved. The codes documented in this report are preliminary and upon spooling machine operator review may be revised to meet current compliance requirements. Rainer Kilgore MD Rainer Kilgore MD 03/21/2020 11:06:33 AM Electronically signed by Rainer Kilgore MD Number of Addenda: 0 Note Initiated On: 03/21/2020 10:47 AM Estimated Blood Loss: Estimated blood loss: none.
--- NOTE | 2020-03-21 11:24 | ROOR ---
Patient Name: Jacob Otero Procedure Date: 03/21/2020 10:48 AM Date of : 1965 Age: 54 Room: [facility] Gender: Male Note Status: Finalized Procedure: Total Colonoscopy to Cecum Indications: Screening for colorectal malignant neoplasm Providers: Rainer Kilgore MD Referring MD: Carol Butcher Requesting Provider: Medicines: Monitored Anesthesia Care Complications: No immediate complications. Procedure: Pre-Anesthesia Assessment: - The heart rate, respiratory rate, oxygen saturations, blood pressure, adequacy of pulmonary ventilation, and response to care were monitored throughout the procedure. The Colonoscope was introduced through the anus and advanced to the cecum, identified by appendiceal orifice and ileocecal valve. The colonoscopy was performed without difficulty. The patient tolerated the procedure well. The quality of the bowel preparation was good. Findings: The perianal and digital rectal examinations were normal. Non-bleeding internal hemorrhoids were found during retroflexion. The hemorrhoids were small and Grade I (internal hemorrhoids that do not prolapse). No other significant abnormalities were identified in a careful examination of the remainder of the colon. The exam was otherwise without abnormality on direct and retroflexion views. Impression: - Non-bleeding internal hemorrhoids. - The examination was otherwise normal on direct and retroflexion views. - No specimens collected. - The exam was otherwise normal to the cecum. Recommendation: - Patient has a contact number available for emergencies. The signs and symptoms of potential delayed complications were discussed with the patient. Return to normal activities tomorrow. Written discharge instructions were provided to the patient. - High fiber diet. - Discharge patient to home. - Continue present medications. - Repeat colonoscopy in 10 years for screening purposes. - Return to referring physician. - The findings and recommendations were discussed with the patient. Procedure Code(s): --- Professional --- 77762, Colonoscopy, flexible; diagnostic, including collection of specimen(s) by brushing or washing, when performed (separate procedure) Diagnosis Code(s): --- Professional --- Z12.11, Encounter for screening for malignant neoplasm of colon K64.0, First degree hemorrhoids CPT copyright 2019 [employer]. All rights reserved. The codes documented in this report are preliminary and upon paramedic instructor review may be revised to meet current compliance requirements. Rainer Kilgore MD Rainer Kilgore MD 03/21/2020 11:24:29 AM Electronically signed by Rainer Kilgore MD Number of Addenda: 0 Note Initiated On: 03/21/2020 10:48 AM Estimated Blood Loss: Estimated blood loss: none.
[2020-03-21] MEDS ORDERED: propofoL 200 MG/20 ML VIAL As Ordered ONE (11:52)
[2020-03-21 12:00] VITALS: BP 141/67
== END 2020-03-21 12:04 | disposition home or self-care (01) ==
LOC: M OPP 08:57
PROVIDERS: ATTEND Internal Medicine Gastroenterology
DX: Z12.11 Encounter for screening for malignant neoplasm of colon (principal); R12 Heartburn; K64.0 First degree hemorrhoids; D13.0 Benign neoplasm of esophagus; D13.1 Benign neoplasm of stomach; K21.01 Gastro-esophageal reflux disease with esophagitis, with bleeding; K31.89 Other diseases of stomach and duodenum; I25.10 Atherosclerotic heart disease of native coronary artery without angina pectoris; I10 Essential (primary) hypertension; E78.5 Hyperlipidemia, unspecified; F41.9 Anxiety disorder, unspecified; J44.9 Chronic obstructive pulmonary disease, unspecified; F17.210 Nicotine dependence, cigarettes, uncomplicated; Z88.8 Allergy status to other drugs, medicaments and biological substances; Z79.82 Long term (current) use of aspirin; Z79.899 Other long term (current) drug therapy
CPT/HCPCS: 43239; 88305; G0121; J2370; J3010

== ENCOUNTER → 2020-07-01 | Outpatient (CLI) | payer MEDICARE, MEDICAID ==
[~2020-07-01] MED LIST changes: +ASPI-569 PO; -ASPI81TAEC PO; -LIDOCAINE 2% 100MG/5ML SDV (FOR ANES.) As Ordered ONE; -LISI-542 PO; +LISI-898 PO; -NS 1,000 ML IV ONE; -fentaNYL 100 MCG/2 ML INJECTION (J3010) As Ordered ONE; -propofoL 500 MG/50 ML VIAL As Ordered ONE
[2020-07-01 11:02] LABS: ALT/SGPT 23 U/L (12-78); BILIRUBIN,TOTAL 0.4 MG/DL (0.2-1.0); BLOOD UREA NITROGEN 13 MG/DL (7-18); CALCIUM LEVEL 9.3 MG/DL (8.5-10.1); CARBON DIOXIDE LEVEL 32 MEQ/L (21-32); CHLORIDE LEVEL 106 MEQ/L (98-107); CHOLESTEROL LEVEL 213 MG/DL (<200); CREATININE FOR GFR 1.07 MG/DL (0.70-1.30); GLOMERULAR FILTRATION RATE > 60.0 (>56); GLUCOSE, FASTING 103 MG/DL (70-100); HDL CHOLESTEROL 46 MG/DL (>40); LDL CHOLESTEROL 146 MG/DL (<100); NON-HDL-C 167 MG/DL; POTASSIUM SERUM 4.8 MEQ/L (3.5-5.1); SODIUM LEVEL 141 MEQ/L (136-145); TOTAL PROTEIN 7.5 GM/DL (6.4-8.2); TRIGLYCERIDES LEVEL 105 MG/DL (<150)
== END ==
LOC: M LAB 09:20
PROVIDERS: ATTEND Physician Assistant
DX: E78.5 Hyperlipidemia, unspecified (principal)

== ENCOUNTER → 2020-11-03 | Outpatient (CLI) | payer MEDICARE, MEDICAID ==
--- NOTE | 2020-11-03 10:22 | REP ---
INDICATION: NICOTINE DEPENDENCE. COMPARISON: Multiple the latest 11/01/2019 TECHNIQUE: Axial noncontrast images from the thoracic inlet to the upper abdomen using low-dose lung screening technique (LDCT). As per the protocol only lung window images were sent to the read station for interpretation. FINDINGS: Biapical pleuroparenchymal scarring and lung emphysematous changes are again noted status quo. No new abnormal nodules, masses, or opacities have developed. Grossly, the mediastinum and pulmonary haylee are unchanged. Grossly, the imaged upper abdomen and imaged osseous structures are unchanged. IMPRESSION: Stable lung rads category 1 S low-dose screening CT examination of the lungs. <Electronically signed by Chilango Jerez > 11/03/20 [id number]
== END ==
LOC: M RAD 09:48
PROVIDERS: ATTEND Internal Medicine Pulmonary Disease
DX: Z87.891 Personal history of nicotine dependence (principal)

== ENCOUNTER → 2020-11-20 | Outpatient (CLI) | payer MEDICARE, MEDICAID ==
[~2020-11-20] MED LIST changes: +CARV6.25 PO; -SPIR1AER IN; +SPIR1AER INH
--- NOTE | 2020-11-20 15:49 | REP ---
INDICATION: ENCOUNTER FOR OTHER PREPROCEDURAL EXAMINATION. COMPARISON: Multiple the latest 03/23/2016 portable exam TECHNIQUE: PA and lateral FINDINGS: The superior mediastinal structures are midline. The cardiac silhouette is unremarkable in size, shape, and position. The diaphragmatic surfaces of the lungs are regular, and the costophrenic angles are clear. The pulmonary mandujano are clear. The imaged osseous structures are intact. IMPRESSION: There is no acute cardiopulmonary disease. <Electronically signed by Chilango Jerez > 11/20/20 [id number]
[2020-11-20 16:18] LABS: HEMOGLOBIN 17.3 g/dl (13.5-17.5); MEAN CORPUSCULAR HEMOGLOBIN 31.5 pg (27.0-33.0); MEAN CORPUSCULAR HGB CONC 33.9 g/dl (32.0-36.5); MEAN CORPUSCULAR VOLUME 92.7 fl (80.0-96.0); PLATELET COUNT, AUTOMATED 368 10^3/uL (150-450); WHITE BLOOD COUNT 9.9 10^3/uL (4.0-10.0)
[2020-11-20 16:38] LABS: BLOOD UREA NITROGEN 17 MG/DL (7-18); CALCIUM LEVEL 9.3 MG/DL (8.5-10.1); CARBON DIOXIDE LEVEL 32 MEQ/L (21-32); CHLORIDE LEVEL 106 MEQ/L (98-107); CREATININE FOR GFR 0.96 MG/DL (0.70-1.30); GLOMERULAR FILTRATION RATE > 60.0 (>56); GLUCOSE, FASTING 82 MG/DL (70-100); POTASSIUM SERUM 4.1 MEQ/L (3.5-5.1); SODIUM LEVEL 141 MEQ/L (136-145)
== END ==
LOC: M LAB 14:59
PROVIDERS: ATTEND Family Medicine
DX: Z01.818 Encounter for other preprocedural examination (principal); J44.9 Chronic obstructive pulmonary disease, unspecified
CPT/HCPCS: 36415; 71046; 80048; 85027; 93005; G0463

== ENCOUNTER → 2020-12-08 | Outpatient (CLI) | payer MEDICARE, MEDICAID | LOC: M LABSMTC 10:08 | PROVIDERS: ATTEND Anesthesiology | DX: Z01.818 Encounter for other preprocedural examination (principal); Z11.52 Encounter for screening for COVID-19 ==

== ENCOUNTER 2020-12-10 11:20 | Day surgery (SDC) | payer MEDICARE, MEDICAID ==
[~2020-12-10] VITALS: Ht 185.4 cm; Wt 90.8 kg
[~2020-12-10 11:20] MED LIST changes: +LIDOCAINE 1% MDV 20ML VIAL SQ PRN; +LR 1,000 ML IV ONE; +ceFAZolin SOD 1 GM in D5W MINI-BAG PLUS 50 ML IV ONE
[2020-12-10] MEDS ORDERED: ALBUTEROL SULFATE 2.5 MG/0.5 ML INH NEB SOLN INH ONE (12:35)
[2020-12-10] MEDS ORDERED: propofoL 200 MG/20 ML VIAL As Ordered ONE (15:36)
[2020-12-10] MEDS ORDERED: LIDOCAINE 2% 100MG/5ML SDV (FOR ANES.) As Ordered ONE (15:36)
[2020-12-10] MEDS ORDERED: MIDAZOLAM INJ 2MG/2ML VIAL (J2250 PER 1MG) As Ordered ONE (15:39)
[2020-12-10] MEDS ORDERED: LIDOCAINE 1% MDV 20ML VIAL As Ordered ONE (16:23)
[2020-12-10] MEDS ORDERED: BUPIVACAINE HCL 0.5% 10ML VIAL As Ordered ONE (16:23)
[2020-12-10] MEDS ORDERED: PHENYLephrine 500MCG 5ML (100MCG/ML) SYRINGE As Ordered ONE (16:47)
[2020-12-10] MEDS ORDERED: HYDR-3713 PO (17:11)
[2020-12-10 17:40] VITALS: BP 107/77
--- NOTE | 2020-12-11 10:52 | RO ---
OPERATIVE NOTE DATE OF OPERATION: 12/10/2020 PREOPERATIVE DIAGNOSIS: Left 5th metatarsal deformity. POSTOPERATIVE DIAGNOSIS: Left 5th metatarsal deformity. PROCEDURE: Left 5th metatarsal head excision. SURGEON: Mina Warner DPM OPTICIAN: ANESTHESIA: Monitored anesthesia care, preop injection of 10 mL of 1:1 mixture of 1% Lidocaine plain and 0.5% Marcaine plain. ESTIMATED BLOOD LOSS: Minimal. MATERIALS: 3-0 Vicryl, 4-0 nylon. INJECTABLES: None. COMPLICATIONS: None. CONDITION: Stable. INDICATIONS: Jacob Otero is a 55-year-old male with 5th metatarsal deformity causing pain when he walks. He presents today for surgical correction. Patient site and side were identified and marked in preoperative holding. Consent was reviewed and obtained. Risks, complications and alternatives to procedure were explained to the patient in detail and all questions were answered. DESCRIPTION OF PROCEDURE: The patient was brought to the operating room and positioned on operating table in supine position. Monitored anesthesia care was delivered by the anesthesia team. Preop injection of 10 mL of 1:1 mixture of 1% Lidocaine plain and 0.5% Marcaine plain was injected into the left foot. The left foot was prepped and draped in normal sterile fashion. Tourniquet was applied to the left ankle and inflated to 250 mmHg. Dorsal incision was made over the 5th metatarsal, carried through with #15 blade. Linear capsulotomy was performed exposing the metatarsal head. The soft tissue attachments at the metatarsal head were released with 15-blade and McGlamry elevator. Using sagittal saw the 5th metatarsal head was excised. Site was irrigated with normal saline. Deep closure was performed with 3-0 Vicryl and skin closure with 4-0 nylon. Sterile dressings were applied. Tourniquet was deflated. The patient was brought to PACU with vital signs stable and neurovascular status intact. He will be partial weightbearing and follow up in the office in two days.
== END 2020-12-10 17:45 | disposition home or self-care (01) ==
LOC: M SDC 11:20
PROVIDERS: ATTEND Podiatrist Foot & Ankle Surgery
DX: M84.872 Other disorders of continuity of bone, left ankle and foot (principal); I25.10 Atherosclerotic heart disease of native coronary artery without angina pectoris; I10 Essential (primary) hypertension; E78.5 Hyperlipidemia, unspecified; I44.7 Left bundle-branch block, unspecified; J44.9 Chronic obstructive pulmonary disease, unspecified; K21.9 Gastro-esophageal reflux disease without esophagitis; F41.9 Anxiety disorder, unspecified; R06.83 Snoring; F17.210 Nicotine dependence, cigarettes, uncomplicated; Z79.899 Other long term (current) drug therapy; Z79.82 Long term (current) use of aspirin; Z79.2 Long term (current) use of antibiotics; Z79.51 Long term (current) use of inhaled steroids; Z88.8 Allergy status to other drugs, medicaments and biological substances; Z86.73 Personal history of transient ischemic attack (TIA), and cerebral infarction without residual deficits
CPT/HCPCS: 28110; 88300; J0690; J2250; J2370

== ENCOUNTER 2021-04-20 16:03 | Emergency (ER) | payer MEDICARE ==
[~2021-04-20] VITALS: Ht 185.4 cm; Wt 95.7 kg
[~2021-04-20 16:03] MED LIST changes: +HYDR-3713 PO; -LIDOCAINE 1% MDV 20ML VIAL SQ PRN; -LISI-898 PO; +LISI5TAB11 PO; +LOSA25TA13 PO; -LOSA25TA14 PO; -LR 1,000 ML IV ONE; -ceFAZolin SOD 1 GM in D5W MINI-BAG PLUS 50 ML IV ONE
[2021-04-20] MEDS ORDERED: ATOR80TA59 (16:44)
[2021-04-20] MEDS ORDERED: ROSU40TA4 (16:44)
[2021-04-20] MEDS ORDERED: hydrALAZINE 20MG/ML 1ML VIAL (J0360 PER 20MG) IV STA (20:02)
[2021-04-20 20:21] LABS: BASO # 0.1 10^3/uL (0.0-0.2); BASO % 0.5 % (0.0-1.0); EOS # 0.2 10^3/uL (0.0-0.5); HEMATOCRIT 49.7 % (42.0-52.0); HEMOGLOBIN 16.1 g/dl (13.5-17.5); LYMPH # 2.5 10^3/uL (1.5-5.0); LYMPH % 22.8 % (24.0-44.0); MEAN CORPUSCULAR HEMOGLOBIN 30.7 pg (27.0-33.0); MEAN CORPUSCULAR HGB CONC 32.4 g/dl (32.0-36.5); MEAN CORPUSCULAR VOLUME 94.8 fl (80.0-96.0); MONO # 1.4 10^3/uL (0.0-0.8); MONO % 12.3 % (2.0-8.0); NEUTROPHILS # 6.9 10^3/uL (1.5-8.5); PLATELET COUNT, AUTOMATED 385 10^3/uL (150-450); RED BLOOD COUNT 5.24 10^6/uL (4.30-6.10); WHITE BLOOD COUNT 11.1 10^3/uL (4.0-10.0)
[2021-04-20] MEDS ORDERED: CARVedilol 6.25 MG TAB PO ONE (20:25)
[2021-04-20 20:32] LABS: BLOOD UREA NITROGEN 17 MG/DL (7-18); CALCIUM LEVEL 9.2 MG/DL (8.5-10.1); CARBON DIOXIDE LEVEL 30 MEQ/L (21-32); CHLORIDE LEVEL 107 MEQ/L (98-107); CREATININE FOR GFR 1.13 MG/DL (0.70-1.30); GLOMERULAR FILTRATION RATE > 60.0 (>56); GLUCOSE, FASTING 78 MG/DL (70-100); NT-PRO BNP 323 PG/ML (<125); POTASSIUM SERUM 4.4 MEQ/L (3.5-5.1); SODIUM LEVEL 143 MEQ/L (136-145)
[2021-04-20 22:01] VITALS: BP 181/96
[2021-04-21 17:55] LABS: MAGNESIUM LEVEL 2.2 MG/DL (1.7-2.2)
== END 2021-04-20 22:19 | disposition home or self-care (01) ==
LOC: M ED 16:03
DX: I10 Essential (primary) hypertension (principal); R42 Dizziness and giddiness; I44.7 Left bundle-branch block, unspecified; J44.9 Chronic obstructive pulmonary disease, unspecified; E78.5 Hyperlipidemia, unspecified; K21.9 Gastro-esophageal reflux disease without esophagitis; Z88.1 Allergy status to other antibiotic agents; Z79.899 Other long term (current) drug therapy; Z79.51 Long term (current) use of inhaled steroids
CPT/HCPCS: 70450; 71045; 80048; 83735; 83880; 84484; 85025; 87798; 93005; 96374; 99285; J0360

== ENCOUNTER → 2021-10-27 | Outpatient (CLI) | payer MEDICARE, MEDICAID ==
[~2021-10-27] MED LIST changes: +ALBU2.5V10 INH; -ALBU83IN INH; +ATOR80TA59; +ROSU40TA4
[2021-10-27 15:06] LABS: HEMOGLOBIN A1c 5.8 %
[2021-10-27 15:20] LABS: ALBUMIN 3.7 GM/DL (3.2-5.2); ALT/SGPT 25 U/L (12-78); BILIRUBIN,TOTAL 0.4 MG/DL (0.2-1.0); BLOOD UREA NITROGEN 12 MG/DL (7-18); CALCIUM LEVEL 9.2 MG/DL (8.5-10.1); CARBON DIOXIDE LEVEL 28 MEQ/L (21-32); CHLORIDE LEVEL 105 MEQ/L (98-107); CHOLESTEROL LEVEL 200 MG/DL (<200); CHOLESTEROL RISK RATIO 4.878 (<5); CREATININE FOR GFR 1.02 MG/DL (0.70-1.30); GLOMERULAR FILTRATION RATE > 60.0 (>56); GLUCOSE, FASTING 93 MG/DL (70-100); HDL CHOLESTEROL 41 MG/DL (>40); LDL CHOLESTEROL 121 MG/DL (<100); NON-HDL-C 159 MG/DL; POTASSIUM SERUM 3.9 MEQ/L (3.5-5.1); SODIUM LEVEL 138 MEQ/L (136-145); TOTAL PROTEIN 6.8 GM/DL (6.4-8.2); TRIGLYCERIDES LEVEL 191 MG/DL (<150)
[2021-10-27 15:50] LABS: TOTAL 25(OH) VITAMIN D 24.4 NG/ML (30.0-100.0)
== END ==
LOC: M LAB 13:50
PROVIDERS: ATTEND Nurse Practitioner Adult Health
DX: Z00.00 Encounter for general adult medical examination without abnormal findings (principal); Z12.5 Encounter for screening for malignant neoplasm of prostate; E78.5 Hyperlipidemia, unspecified; I10 Essential (primary) hypertension

== ENCOUNTER → 2021-11-09 | Outpatient (CLI) | payer MEDICARE, MEDICAID | LOC: M RAD 12:39 | PROVIDERS: ATTEND Internal Medicine Pulmonary Disease | DX: F17.218 Nicotine dependence, cigarettes, with other nicotine-induced disorders (principal) ==

== ENCOUNTER → 2021-12-02 | Outpatient (REF) | payer MEDICARE, MEDICAID | LOC: M LAB REF 16:41 | PROVIDERS: ATTEND Surgery | DX: L72.0 Epidermal cyst (principal) ==

== ENCOUNTER → 2022-09-07 | Outpatient (CLI) | payer MEDICARE, MEDICAID ==
[~2022-09-07] MED LIST changes: +SIMV-254 PO; -ZOCO40TA PO
[2022-09-07 11:12] LABS: ALBUMIN 3.7 G/DL (3.2-5.2); BLOOD UREA NITROGEN 14 MG/DL (9-23); CALCIUM LEVEL 8.9 MG/DL (8.5-10.1); CARBON DIOXIDE LEVEL 28 MMOL/L (20-31); CHLORIDE LEVEL 104 MMOL/L (98-107); CREATININE FOR GFR 1.02 MG/DL (0.70-1.30); GLOMERULAR FILTRATION RATE > 60.0 (>56); GLUCOSE, FASTING 87 MG/DL (60-100); PHOSPHORUS LEVEL 2.8 MG/DL (2.5-4.9); POTASSIUM SERUM 4.5 MMOL/L (3.5-5.1); SODIUM LEVEL 136 MMOL/L (136-145)
== END ==
LOC: M LAB 09:13
PROVIDERS: ATTEND Internal Medicine Cardiovascular Disease
DX: I50.42 Chronic combined systolic (congestive) and diastolic (congestive) heart failure (principal)

== ENCOUNTER → 2022-10-11 | Outpatient (REF) | payer MEDICARE, MEDICAID | LOC: M SFHCPLAZ 10:20 | PROVIDERS: ATTEND Nurse Practitioner Adult Health | DX: I10 Essential (primary) hypertension (principal); E78.5 Hyperlipidemia, unspecified ==

== ENCOUNTER → 2022-10-11 | Outpatient (CLI) | payer MEDICARE, MEDICAID ==
[2022-10-11 13:56] LABS: BLOOD UREA NITROGEN 14 MG/DL (9-23); CARBON DIOXIDE LEVEL 27 MMOL/L (20-31); CHLORIDE LEVEL 106 MMOL/L (98-107); GLOMERULAR FILTRATION RATE > 60.0 (>56); GLUCOSE, FASTING 86 MG/DL (60-100); POTASSIUM SERUM 4.6 MMOL/L (3.5-5.1); SODIUM LEVEL 142 MMOL/L (136-145)
== END ==
LOC: M PLALAB 10:31
PROVIDERS: ATTEND Internal Medicine Cardiovascular Disease
DX: I50.42 Chronic combined systolic (congestive) and diastolic (congestive) heart failure (principal)

== ENCOUNTER → 2022-11-26 | Outpatient (CLI) | payer MEDICARE, MEDICAID | LOC: M RAD 15:54 | PROVIDERS: ATTEND Internal Medicine Pulmonary Disease | DX: Z87.891 Personal history of nicotine dependence (principal) ==

== ENCOUNTER 2023-03-25 15:22 | Emergency (ER) | payer MEDICARE, MEDICAID ==
[~2023-03-25] VITALS: Ht 185.4 cm; Wt 97.5 kg
[2023-03-25] MEDS ORDERED: METO1TAB7 PO (15:36)
[2023-03-25] MEDS ORDERED: ENTR1TAB PO (15:36)
[2023-03-25 16:45] LABS: BASO # 0.1 10^3/uL (0.0-0.2); BASO % 0.5 % (0.0-1.0); EOS # 0.1 10^3/uL (0.0-0.5); EOS % 0.6 % (0.0-3.0); HEMATOCRIT 51.7 % (42.0-52.0); HEMOGLOBIN 17.3 g/dl (13.5-17.5); LYMPH # 1.3 10^3/uL (1.5-5.0); LYMPH % 12.6 % (24.0-44.0); MEAN CORPUSCULAR HEMOGLOBIN 31.3 pg (27.0-33.0); MEAN CORPUSCULAR HGB CONC 33.5 g/dl (32.0-36.5); MEAN CORPUSCULAR VOLUME 93.5 fl (80.0-96.0); MONO # 1.1 10^3/uL (0.0-0.8); MONO % 10.7 % (2.0-8.0); NEUTROPHILS # 7.7 10^3/uL (1.5-8.5); NEUTROPHILS % 75.2 % (36.0-66.0); PLATELET COUNT, AUTOMATED 318 10^3/uL (150-450); RED BLOOD COUNT 5.53 10^6/uL (4.30-6.10); WHITE BLOOD COUNT 10.3 10^3/uL (4.0-10.0)
[2023-03-25 17:14] LABS: ALKALINE PHOSPHATASE 74 U/L (46-116); ALT/SGPT 22 U/L (7.0-40); AST/SGOT 14 U/L (<34); BILIRUBIN,DIRECT 0.1 MG/DL (<0.4); BILIRUBIN,TOTAL 0.4 MG/DL (0.3-1.2); BLOOD UREA NITROGEN 16 MG/DL (9-23); CALCIUM LEVEL 9.2 MG/DL (8.5-10.1); CARBON DIOXIDE LEVEL 29 MMOL/L (20-31); CHLORIDE LEVEL 103 MMOL/L (98-107); CREATININE FOR GFR 1.09 MG/DL (0.70-1.30); GLOMERULAR FILTRATION RATE > 60.0 (>56); GLUCOSE, FASTING 89 MG/DL (60-100); POTASSIUM SERUM 4.1 MMOL/L (3.5-5.1); SODIUM LEVEL 136 MMOL/L (136-145); TOTAL PROTEIN 6.8 G/DL (5.7-8.2)
[2023-03-25 20:26] LABS: INR 0.99; PROTHROMBIN TIME 12.8 SECONDS (12.5-14.5)
[2023-03-25 20:30] LABS: D-DIMER QUANT < 0.27 ug/mL (<0.5)
[2023-03-25 20:44] LABS: RSV AMPLIFICATION NEGATIVE (NEGATIVE)
[2023-03-25 20:46] LABS: CK-MB VALUE MASS < 1.0 NG/ML (<3.6); LIPASE 34 U/L (12-53)
[2023-03-25 20:48] LABS: CPK CREATINE PHOSPHOKINASE 117 U/L (46-171); MB/CK RELATIVE INDEX 0.85 (< OR =4)
[2023-03-25 20:50] LABS: FREE T4 1.03 NG/DL (0.89-1.76); THYROID STIMULATING HORMONE 3.259 uIU/ML (0.55-4.78)
[2023-03-25 21:30] VITALS: BP 118/74
[2023-03-25 21:31] VITALS: TEMP 98.8; O2SAT 94
== END 2023-03-25 21:42 | disposition home or self-care (01) ==
LOC: M ED 15:22
DX: R51.9 Headache, unspecified (principal); R03.0 Elevated blood-pressure reading, without diagnosis of hypertension; I50.9 Heart failure, unspecified; I10 Essential (primary) hypertension; E78.5 Hyperlipidemia, unspecified; K21.9 Gastro-esophageal reflux disease without esophagitis; J44.9 Chronic obstructive pulmonary disease, unspecified; F41.9 Anxiety disorder, unspecified; F17.200 Nicotine dependence, unspecified, uncomplicated; Z79.899 Other long term (current) drug therapy; Z88.8 Allergy status to other drugs, medicaments and biological substances

== ENCOUNTER 2023-03-28 23:18 | Emergency (ER) | payer MEDICARE, MEDICAID ==
[~2023-03-28] VITALS: Ht 182.9 cm; Wt 96.1 kg
[~2023-03-28 23:18] MED LIST changes: +ENTR1TAB PO; +METO1TAB7 PO
[2023-03-28] MEDS ORDERED: DAPAGLIFLOZIN (23:25)
[2023-03-29 08:49] VITALS: BP 154/82; TEMP 96.6; O2SAT 96
== END 2023-03-29 08:52 | disposition home or self-care (01) ==
LOC: M ED 23:18
DX: I10 Essential (primary) hypertension (principal); I50.9 Heart failure, unspecified; F17.200 Nicotine dependence, unspecified, uncomplicated; Z79.899 Other long term (current) drug therapy; Z88.8 Allergy status to other drugs, medicaments and biological substances
CPT/HCPCS: 93005; 99284; G0463

== ENCOUNTER → 2023-04-12 | Outpatient (REF) | payer MEDICARE, MEDICAID ==
[~2023-04-12] MED LIST changes: +DAPAGLIFLOZIN
== END ==
LOC: M SFHCDERM 17:44
PROVIDERS: ATTEND Physician Assistant
DX: L57.0 Actinic keratosis (principal)

== ENCOUNTER → 2023-04-28 | Outpatient (REF) | payer MEDICARE, MEDICAID | LOC: M LAB REF 16:12 | PROVIDERS: ATTEND Physician Assistant Medical | DX: B34.9 Viral infection, unspecified (principal) ==

== ENCOUNTER → 2023-05-30 | Outpatient (CLI) | payer MEDICARE, MEDICAID ==
[2023-05-30 08:13] LABS: HEMATOCRIT 53.7 % (42.0-52.0); HEMOGLOBIN 17.7 g/dl (13.5-17.5); PLATELET COUNT, AUTOMATED 301 10^3/uL (150-450); RED BLOOD COUNT 5.71 10^6/uL (4.30-6.10); WHITE BLOOD COUNT 8.3 10^3/uL (4.0-10.0)
[2023-05-30 08:38] LABS: ALBUMIN 3.9 G/DL (3.2-5.2); ALKALINE PHOSPHATASE 71 U/L (46-116); ALT/SGPT 26 U/L (7.0-40); AST/SGOT 12 U/L (<34); BILIRUBIN,TOTAL 0.6 MG/DL (0.3-1.2); BLOOD UREA NITROGEN 17 MG/DL (9-23); CALCIUM LEVEL 9.8 MG/DL (8.5-10.1); CARBON DIOXIDE LEVEL 33 MMOL/L (20-31); CHLORIDE LEVEL 106 MMOL/L (98-107); CREATININE FOR GFR 1.08 MG/DL (0.70-1.30); GLOMERULAR FILTRATION RATE > 60.0 (>56); GLUCOSE, FASTING 94 MG/DL (60-100); MAGNESIUM LEVEL 2.2 MG/DL (1.8-2.4); POTASSIUM SERUM 4.4 MMOL/L (3.5-5.1); SODIUM LEVEL 142 MMOL/L (136-145); TOTAL PROTEIN 6.7 G/DL (5.7-8.2)
[2023-05-30 08:40] LABS: FERRITIN 49.3 NG/ML (10.5-307.3); THYROID STIMULATING HORMONE 2.167 uIU/ML (0.55-4.78)
[2023-05-30 08:41] LABS: FREE T4 1.14 NG/DL (0.89-1.76)
[2023-05-30 08:42] LABS: HEMOGLOBIN A1c 5.7 % (4.0-6.0)
== END ==
LOC: M LAB 07:32
PROVIDERS: ATTEND Nurse Practitioner Adult Health
DX: I10 Essential (primary) hypertension (principal); D50.9 Iron deficiency anemia, unspecified

== ENCOUNTER → 2023-08-10 | Outpatient (CLI) | payer MEDICARE, MEDICAID ==
[~2023-08-10] MED LIST changes: -ROSU40TA4; +ROSU40TA63
[2023-08-10 07:55] LABS: HEMATOCRIT 53.3 % (42.0-52.0); HEMOGLOBIN 17.7 g/dl (13.5-17.5); MEAN CORPUSCULAR HEMOGLOBIN 31.4 pg (27.0-33.0); MEAN CORPUSCULAR HGB CONC 33.2 g/dl (32.0-36.5); MEAN CORPUSCULAR VOLUME 94.5 fl (80.0-96.0); PLATELET COUNT, AUTOMATED 313 10^3/uL (150-450); RED BLOOD COUNT 5.64 10^6/uL (4.30-6.10); WHITE BLOOD COUNT 9.2 10^3/uL (4.0-10.0)
[2023-08-10 08:25] LABS: ALBUMIN 3.7 G/DL (3.2-5.2); ALKALINE PHOSPHATASE 81 U/L (46-116); ALT/SGPT 25 U/L (7.0-40); AST/SGOT 11 U/L (<34); BILIRUBIN,TOTAL 0.3 MG/DL (0.3-1.2); BLOOD UREA NITROGEN 16 MG/DL (9-23); CALCIUM LEVEL 9.2 MG/DL (8.3-10.6); CARBON DIOXIDE LEVEL 32 MMOL/L (20-31); CHLORIDE LEVEL 105 MMOL/L (98-107); CREATININE FOR GFR 1.06 MG/DL (0.70-1.30); GLOMERULAR FILTRATION RATE > 60.0 (>49); GLUCOSE, FASTING 93 MG/DL (74-106); POTASSIUM SERUM 4.4 MMOL/L (3.5-5.1); SODIUM LEVEL 141 MMOL/L (136-145); TOTAL PROTEIN 6.8 G/DL (5.7-8.2)
== END ==
LOC: M LAB 07:06
PROVIDERS: ATTEND Internal Medicine Cardiovascular Disease
DX: I11.0 Hypertensive heart disease with heart failure (principal); I50.32 Chronic diastolic (congestive) heart failure

== ENCOUNTER → 2023-10-10 | Outpatient (CLI) | payer MEDICARE, MEDICAID ==
[2023-10-10 07:43] LABS: HEMATOCRIT 52.2 % (42.0-52.0); HEMOGLOBIN 17.2 g/dl (13.5-17.5); MEAN CORPUSCULAR VOLUME 94.1 fl (80.0-96.0); PLATELET COUNT, AUTOMATED 289 10^3/uL (150-450); RED BLOOD COUNT 5.55 10^6/uL (4.30-6.10); WHITE BLOOD COUNT 7.5 10^3/uL (4.0-10.0)
[2023-10-10 08:12] LABS: ALBUMIN 3.5 G/DL (3.2-5.2); ALKALINE PHOSPHATASE 84 U/L (46-116); ALT/SGPT 33 U/L (7.0-40); AST/SGOT 19 U/L (<34); BILIRUBIN,TOTAL 0.4 MG/DL (0.3-1.2); BLOOD UREA NITROGEN 14 MG/DL (9-23); CARBON DIOXIDE LEVEL 31 MMOL/L (20-31); CHLORIDE LEVEL 104 MMOL/L (98-107); CREATININE FOR GFR 1.05 MG/DL (0.70-1.30); GLOMERULAR FILTRATION RATE > 60.0 (>49); GLUCOSE, FASTING 99 MG/DL (74-106); POTASSIUM SERUM 4.3 MMOL/L (3.5-5.1); PSA SCREENING 1.89 NG/ML (< 4.00); SODIUM LEVEL 138 MMOL/L (136-145); TOTAL PROTEIN 6.6 G/DL (5.7-8.2)
[2023-10-10 08:14] LABS: THYROID STIMULATING HORMONE 3.318 uIU/ML (0.55-4.78)
[2023-10-10 08:34] LABS: HEMOGLOBIN A1c 5.8 % (4.0-6.0)
== END ==
LOC: M LAB 06:52
PROVIDERS: ATTEND Nurse Practitioner Adult Health
DX: I11.0 Hypertensive heart disease with heart failure (principal); E78.5 Hyperlipidemia, unspecified; I50.1 Left ventricular failure, unspecified; I50.22 Chronic systolic (congestive) heart failure; I25.10 Atherosclerotic heart disease of native coronary artery without angina pectoris; Z12.5 Encounter for screening for malignant neoplasm of prostate; Z79.899 Other long term (current) drug therapy
CPT/HCPCS: 36415; 80053; 82306; 82728; 83036; 83735; 83880; 84443; 85025; G0103

== ENCOUNTER → 2023-10-10 | Outpatient (CLI) | payer MEDICARE, MEDICAID ==
[2023-10-10 07:43] LABS: BASO # 0.1 10^3/uL (0.0-0.2); BASO % 0.7 % (0.0-1.0); EOS # 0.1 10^3/uL (0.0-0.5); EOS % 1.8 % (0.0-3.0); HEMATOCRIT 51.6 % (42.0-52.0); HEMOGLOBIN 17.3 g/dl (13.5-17.5); LYMPH # 1.7 10^3/uL (1.5-5.0); MEAN CORPUSCULAR HEMOGLOBIN 31.4 pg (27.0-33.0); MEAN CORPUSCULAR HGB CONC 33.5 g/dl (32.0-36.5); MEAN CORPUSCULAR VOLUME 93.6 fl (80.0-96.0); MONO # 0.9 10^3/uL (0.0-0.8); MONO % 11.8 % (2.0-8.0); NEUTROPHILS # 4.5 10^3/uL (1.5-8.5); PLATELET COUNT, AUTOMATED 301 10^3/uL (150-450); RED BLOOD COUNT 5.51 10^6/uL (4.30-6.10); WHITE BLOOD COUNT 7.3 10^3/uL (4.0-10.0)
[2023-10-10 08:11] LABS: ALBUMIN 3.7 G/DL (3.2-5.2); ALKALINE PHOSPHATASE 84 U/L (46-116); ALT/SGPT 33 U/L (7.0-40); AST/SGOT 17 U/L (<34); BILIRUBIN,TOTAL 0.3 MG/DL (0.3-1.2); BLOOD UREA NITROGEN 14 MG/DL (9-23); CARBON DIOXIDE LEVEL 29 MMOL/L (20-31); CHLORIDE LEVEL 104 MMOL/L (98-107); CREATININE FOR GFR 1.05 MG/DL (0.70-1.30); GLOMERULAR FILTRATION RATE > 60.0 (>49); GLUCOSE, FASTING 100 MG/DL (74-106); POTASSIUM SERUM 4.4 MMOL/L (3.5-5.1); SODIUM LEVEL 137 MMOL/L (136-145); TOTAL PROTEIN 6.5 G/DL (5.7-8.2)
== END ==
LOC: M LAB 06:54
PROVIDERS: ATTEND Internal Medicine Cardiovascular Disease
DX: I50.22 Chronic systolic (congestive) heart failure (principal)

== ENCOUNTER → 2023-10-17 | Outpatient (CLI) | payer MEDICARE, MEDICAID | LOC: M PLAIMG 10:42 | PROVIDERS: ATTEND Internal Medicine Cardiovascular Disease | DX: I50.22 Chronic systolic (congestive) heart failure (principal) ==

== ENCOUNTER → 2024-01-05 | Outpatient (CLI) | payer MEDICARE, MEDICAID ==
[~2024-01-05] MED LIST changes: -ROSU40TA63; +ROSU40TA81
[2024-01-05 07:48] LABS: ALBUMIN 3.6 G/DL (3.2-5.2); ALKALINE PHOSPHATASE 80 U/L (46-116); ALT/SGPT 27 U/L (7.0-40); AST/SGOT 11 U/L (<34); BILIRUBIN,TOTAL 0.4 MG/DL (0.3-1.2); BLOOD UREA NITROGEN 16 MG/DL (9-23); CALCIUM LEVEL 9.1 MG/DL (8.3-10.6); CARBON DIOXIDE LEVEL 30 MMOL/L (20-31); CHLORIDE LEVEL 107 MMOL/L (98-107); CREATININE FOR GFR 1.05 MG/DL (0.70-1.30); GLOMERULAR FILTRATION RATE > 60.0 (>49); GLUCOSE, FASTING 101 MG/DL (74-106); POTASSIUM SERUM 4.3 MMOL/L (3.5-5.1); SODIUM LEVEL 140 MMOL/L (136-145); TOTAL PROTEIN 6.4 G/DL (5.7-8.2)
[2024-01-05 07:58] LABS: BASO # 0.1 10^3/uL (0.0-0.2); BASO % 0.8 % (0.0-1.0); EOS # 0.2 10^3/uL (0.0-0.5); HEMATOCRIT 50.1 % (42.0-52.0); HEMOGLOBIN 16.6 g/dl (13.5-17.5); LYMPH # 1.6 10^3/uL (1.5-5.0); LYMPH % 20.4 % (24.0-44.0); MEAN CORPUSCULAR HEMOGLOBIN 30.3 pg (27.0-33.0); MEAN CORPUSCULAR HGB CONC 33.1 g/dl (32.0-36.5); MEAN CORPUSCULAR VOLUME 91.6 fl (80.0-96.0); MONO # 1.1 10^3/uL (0.0-0.8); MONO % 14.5 % (2.0-8.0); NEUTROPHILS # 4.7 10^3/uL (1.5-8.5); NEUTROPHILS % 61.8 % (36.0-66.0); PLATELET COUNT, AUTOMATED 282 10^3/uL (150-450); RED BLOOD COUNT 5.47 10^6/uL (4.30-6.10); WHITE BLOOD COUNT 7.7 10^3/uL (4.0-10.0)
== END ==
LOC: M LAB 06:47
PROVIDERS: ATTEND Internal Medicine Cardiovascular Disease
DX: I50.22 Chronic systolic (congestive) heart failure (principal)

== ENCOUNTER → 2024-01-19 | Outpatient (CLI) | payer MEDICARE, MEDICAID | LOC: M RAD 07:33 | PROVIDERS: ATTEND Internal Medicine Pulmonary Disease | DX: F17.218 Nicotine dependence, cigarettes, with other nicotine-induced disorders (principal) ==

== ENCOUNTER 2024-04-20 00:36 | Emergency (ER) | payer MEDICARE, MEDICAID ==
[~2024-04-20] VITALS: Ht 185.4 cm; Wt 100.2 kg
[~2024-04-20 00:36] MED LIST changes: -ADV250INH INH; +ADVA1AER9 INH
[2024-04-20 06:00] VITALS: TEMP 98.4
[2024-04-20 06:13] LABS: BASO % 0.4 % (0.0-1.0); EOS # 0.1 10^3/uL (0.0-0.5); EOS % 0.9 % (0.0-3.0); HEMATOCRIT 50.5 % (42.0-52.0); HEMOGLOBIN 16.9 g/dl (13.5-17.5); LYMPH # 1.4 10^3/uL (1.5-5.0); LYMPH % 14.2 % (24.0-44.0); MEAN CORPUSCULAR HEMOGLOBIN 30.8 pg (27.0-33.0); MEAN CORPUSCULAR HGB CONC 33.5 g/dl (32.0-36.5); MONO # 1.1 10^3/uL (0.0-0.8); MONO % 11.6 % (2.0-8.0); NEUTROPHILS # 7.1 10^3/uL (1.5-8.5); NEUTROPHILS % 72.5 % (36.0-66.0); PLATELET COUNT, AUTOMATED 272 10^3/uL (150-450); RED BLOOD COUNT 5.49 10^6/uL (4.30-6.10); WHITE BLOOD COUNT 9.8 10^3/uL (4.0-10.0)
[2024-04-20] MEDS ORDERED: OMEP40CA4 PO (06:16)
[2024-04-20] MEDS ORDERED: FARX1TAB3 PO (06:16)
[2024-04-20] MEDS ORDERED: ROSU40TA81 PO (06:16)
[2024-04-20] MEDS ORDERED: FAMO20TA4 PO (06:16)
[2024-04-20] MEDS ORDERED: METO50TA7 PO (06:16)
[2024-04-20 06:40] LABS: BLOOD UREA NITROGEN 14 MG/DL (9-23); CALCIUM LEVEL 8.9 MG/DL (8.3-10.6); CARBON DIOXIDE LEVEL 27 MMOL/L (20-31); CHLORIDE LEVEL 106 MMOL/L (98-107); CREATININE FOR GFR 0.93 MG/DL (0.70-1.30); GLOMERULAR FILTRATION RATE > 60.0 (>49); GLUCOSE, FASTING 105 MG/DL (74-106); POTASSIUM SERUM 4.2 MMOL/L (3.5-5.1); SODIUM LEVEL 143 MMOL/L (136-145)
[2024-04-20 09:00] VITALS: BP 150/81; O2SAT 95
== END 2024-04-20 09:07 | disposition home or self-care (01) ==
LOC: M ED 00:36
DX: I11.9 Hypertensive heart disease without heart failure (principal); E78.5 Hyperlipidemia, unspecified; J44.9 Chronic obstructive pulmonary disease, unspecified; F17.200 Nicotine dependence, unspecified, uncomplicated; R94.31 Abnormal electrocardiogram [ECG] [EKG]; Z79.899 Other long term (current) drug therapy

== ENCOUNTER 2024-04-23 23:31 | Emergency (ER) | payer MEDICAID, MEDICARE ==
[~2024-04-23] VITALS: Ht 185.4 cm; Wt 99.2 kg
[~2024-04-23 23:31] MED LIST changes: +FAMO20TA4 PO; +FARX1TAB3 PO; +METO50TA7 PO; +OMEP40CA4 PO; +ROSU40TA81 PO
[2024-04-24] MEDS ORDERED: amLODIPine 5 MG TAB PO ONE (01:35)
[2024-04-24 01:43] VITALS: BP 177/83
[2024-04-24 03:23] VITALS: BP 159/80; TEMP 97.3; O2SAT 96
== END 2024-04-24 03:27 | disposition home or self-care (01) ==
LOC: M ED 23:31
DX: I10 Essential (primary) hypertension (principal); K21.9 Gastro-esophageal reflux disease without esophagitis; E78.5 Hyperlipidemia, unspecified; J44.9 Chronic obstructive pulmonary disease, unspecified; F17.210 Nicotine dependence, cigarettes, uncomplicated; F10.10 Alcohol abuse, uncomplicated; Z88.8 Allergy status to other drugs, medicaments and biological substances; Z79.899 Other long term (current) drug therapy

== ENCOUNTER 2024-04-27 23:51 | Emergency (ER) | payer MEDICARE ==
[~2024-04-27] VITALS: Ht 185.4 cm; Wt 97.1 kg
[2024-04-27] MEDS ORDERED: AMLO2.5T3 (23:57)
[2024-04-28 07:00] VITALS: BP 149/77
[2024-04-28 07:15] VITALS: O2SAT 97
[2024-04-28 07:22] VITALS: TEMP 98.6
== END 2024-04-28 07:24 | disposition home or self-care (01) ==
LOC: M ED 23:51
DX: I11.0 Hypertensive heart disease with heart failure (principal); I50.22 Chronic systolic (congestive) heart failure; F17.210 Nicotine dependence, cigarettes, uncomplicated; F10.10 Alcohol abuse, uncomplicated; Z88.8 Allergy status to other drugs, medicaments and biological substances; Z79.899 Other long term (current) drug therapy

== ENCOUNTER → 2024-05-01 | Outpatient (CLI) | payer MEDICARE ==
[~2024-05-01] MED LIST changes: +AMLO2.5T3
[2024-05-01 07:48] LABS: HEMATOCRIT 52.4 % (42.0-52.0); HEMOGLOBIN 17.6 g/dl (13.5-17.5); MEAN CORPUSCULAR HGB CONC 33.6 g/dl (32.0-36.5); MEAN CORPUSCULAR VOLUME 92.4 fl (80.0-96.0); PLATELET COUNT, AUTOMATED 322 10^3/uL (150-450); RED BLOOD COUNT 5.67 10^6/uL (4.30-6.10)
[2024-05-01 08:13] LABS: ALBUMIN 3.7 G/DL (3.2-5.2); ALKALINE PHOSPHATASE 75 U/L (40-129); ALT/SGPT 28 U/L (7.0-40); AST/SGOT 19 U/L (<34); BILIRUBIN,TOTAL 0.5 MG/DL (0.3-1.2); BLOOD UREA NITROGEN 15 MG/DL (9-23); CALCIUM LEVEL 9.2 MG/DL (8.3-10.6); CARBON DIOXIDE LEVEL 28 MMOL/L (20-31); CHLORIDE LEVEL 106 MMOL/L (98-107); CHOLESTEROL LEVEL 113 MG/DL (<200); CHOLESTEROL RISK RATIO 3.38 (<5); CREATININE FOR GFR 1.03 MG/DL (0.70-1.30); GLOMERULAR FILTRATION RATE > 60.0 (>49); GLUCOSE, FASTING 90 MG/DL (74-106); HDL CHOLESTEROL 33.4 MG/DL (>40); LDL CHOLESTEROL 60.8 MG/DL (<100); MAGNESIUM LEVEL 2.1 MG/DL (1.8-2.4); NON-HDL-C 79.6 MG/DL; POTASSIUM SERUM 4.1 MMOL/L (3.5-5.1); SODIUM LEVEL 141 MMOL/L (136-145); TOTAL PROTEIN 6.8 G/DL (5.7-8.2); TRIGLYCERIDES LEVEL 94 MG/DL (<150)
[2024-05-01 08:15] LABS: FERRITIN 62.8 NG/ML (10.5-307.3); FREE T4 1.31 NG/DL (0.89-1.76); THYROID STIMULATING HORMONE 1.592 uIU/ML (0.55-4.78)
[2024-05-01 08:34] LABS: HEMOGLOBIN A1c 5.7 % (4.0-6.0)
== END ==
LOC: M LAB 06:52
PROVIDERS: ATTEND Nurse Practitioner Adult Health
DX: I10 Essential (primary) hypertension (principal); E78.5 Hyperlipidemia, unspecified; I50.1 Left ventricular failure, unspecified

== ENCOUNTER 2024-05-09 00:50 | Emergency (ER) | payer MEDICAID, MEDICARE ==
[~2024-05-09] VITALS: Ht 185.4 cm; Wt 96.5 kg
[2024-05-09 08:01] LABS: BASO % 0.4 % (0.0-1.0); EOS # 0.1 10^3/uL (0.0-0.5); EOS % 0.6 % (0.0-3.0); HEMATOCRIT 53.3 % (42.0-52.0); HEMOGLOBIN 17.5 g/dl (13.5-17.5); LYMPH # 1.3 10^3/uL (1.5-5.0); LYMPH % 12.2 % (24.0-44.0); MEAN CORPUSCULAR HGB CONC 32.8 g/dl (32.0-36.5); MEAN CORPUSCULAR VOLUME 94.5 fl (80.0-96.0); MONO # 1.1 10^3/uL (0.0-0.8); MONO % 10.4 % (2.0-8.0); NEUTROPHILS # 8.2 10^3/uL (1.5-8.5); PLATELET COUNT, AUTOMATED 312 10^3/uL (150-450); RED BLOOD COUNT 5.64 10^6/uL (4.30-6.10); WHITE BLOOD COUNT 10.8 10^3/uL (4.0-10.0)
[2024-05-09 08:13] LABS: INR 0.92; PARTIAL THROMBOPLASTIN TIME 31.3 SECONDS (24.8-34.2); PROTHROMBIN TIME 12.6 SECONDS (12.5-14.5)
[2024-05-09 08:26] LABS: ALBUMIN 3.9 G/DL (3.2-5.2); BILIRUBIN,DIRECT 0.1 MG/DL (<0.4); BILIRUBIN,TOTAL 0.4 MG/DL (0.3-1.2); TOTAL PROTEIN 7.3 G/DL (5.7-8.2)
[2024-05-09] MEDS ORDERED: ISOVUE-370 76% 100ML VIAL As Ordered ONE (08:33)
[2024-05-09] MEDS: IPRATROPIUM 0.5MG/ALBUTEROL 2.5MG INH SOL UD 3ML (DUONEB) NEB ONE (09:10)
[2024-05-09] MEDS ORDERED: PRED20TA PO (10:01)
[2024-05-09] MEDS: predniSONE 20 MG TAB PO ONE (10:05)
[2024-05-09 10:17] VITALS: BP 107/55; TEMP 96.4; O2SAT 93
== END 2024-05-09 10:20 | disposition home or self-care (01) ==
LOC: M ED 00:50
DX: R04.2 Hemoptysis (principal); J44.9 Chronic obstructive pulmonary disease, unspecified; I10 Essential (primary) hypertension; K21.9 Gastro-esophageal reflux disease without esophagitis; F17.210 Nicotine dependence, cigarettes, uncomplicated; Z88.8 Allergy status to other drugs, medicaments and biological substances; Z79.52 Long term (current) use of systemic steroids; Z79.899 Other long term (current) drug therapy
CPT/HCPCS: 36415; 71275; 80076; 83690; 85025; 85610; 85730; 87486; 87581; 87633; 87798; 94640; 99284; J7512; Q9967

== ENCOUNTER 2024-05-13 22:16 | Emergency (ER) | payer MEDICARE ==
[~2024-05-13] VITALS: Ht 185.4 cm; Wt 94.5 kg
[~2024-05-13 22:16] MED LIST changes: +PRED20TA PO
[2024-05-13 22:19] VITALS: TEMP 96.4
[2024-05-13 22:56] LABS: BASO # 0.1 10^3/uL (0.0-0.2); BASO % 0.5 % (0.0-1.0); EOS # 0.2 10^3/uL (0.0-0.5); EOS % 1.4 % (0.0-3.0); HEMATOCRIT 49.9 % (42.0-52.0); HEMOGLOBIN 16.7 g/dl (13.5-17.5); LYMPH # 1.7 10^3/uL (1.5-5.0); LYMPH % 16.4 % (24.0-44.0); MEAN CORPUSCULAR HEMOGLOBIN 31.3 pg (27.0-33.0); MEAN CORPUSCULAR HGB CONC 33.5 g/dl (32.0-36.5); MEAN CORPUSCULAR VOLUME 93.6 fl (80.0-96.0); MONO # 1.2 10^3/uL (0.0-0.8); MONO % 11.8 % (2.0-8.0); NEUTROPHILS # 7.3 10^3/uL (1.5-8.5); NEUTROPHILS % 69.4 % (36.0-66.0); PLATELET COUNT, AUTOMATED 315 10^3/uL (150-450); RED BLOOD COUNT 5.33 10^6/uL (4.30-6.10); WHITE BLOOD COUNT 10.5 10^3/uL (4.0-10.0)
[2024-05-13 23:20] LABS: MB/CK RELATIVE INDEX 0.52 (< OR =4)
[2024-05-14 01:55] LABS: BLOOD UREA NITROGEN 13 MG/DL (9-23); CALCIUM LEVEL 8.9 MG/DL (8.3-10.6); CARBON DIOXIDE LEVEL 26 MMOL/L (20-31); CHLORIDE LEVEL 107 MMOL/L (98-107); CK-MB VALUE MASS < 1.0 NG/ML (<3.6); CREATININE FOR GFR 0.93 MG/DL (0.70-1.30); GLOMERULAR FILTRATION RATE > 60.0 (>49); GLUCOSE, FASTING 109 MG/DL (74-106); POTASSIUM SERUM 4.3 MMOL/L (3.5-5.1); SODIUM LEVEL 142 MMOL/L (136-145)
[2024-05-14 02:34] LABS: CPK CREATINE PHOSPHOKINASE 182 U/L (46-171); MB/CK RELATIVE INDEX 0.54 (< OR =4)
[2024-05-14 03:01] VITALS: O2SAT 96
[2024-05-14 03:07] VITALS: BP 130/78
== END 2024-05-14 03:09 | disposition home or self-care (01) ==
LOC: M ED 22:16
DX: I11.0 Hypertensive heart disease with heart failure (principal); I50.9 Heart failure, unspecified; K21.9 Gastro-esophageal reflux disease without esophagitis; E78.5 Hyperlipidemia, unspecified; J44.9 Chronic obstructive pulmonary disease, unspecified; F41.9 Anxiety disorder, unspecified; Z88.8 Allergy status to other drugs, medicaments and biological substances; F17.200 Nicotine dependence, unspecified, uncomplicated; R94.31 Abnormal electrocardiogram [ECG] [EKG]; Z79.899 Other long term (current) drug therapy

== ENCOUNTER → 2024-06-16 | Outpatient (CLI) | payer MEDICARE | LOC: M RAD 15:30 | PROVIDERS: ATTEND Physician Assistant | DX: S59.901A Unspecified injury of right elbow, initial encounter (principal); X58.XXXA Exposure to other specified factors, initial encounter; Y92.9 Unspecified place or not applicable; Y93.9 Activity, unspecified; Y99.9 Unspecified external cause status; M77.8 Other enthesopathies, not elsewhere classified ==

== ENCOUNTER 2024-07-14 03:51 | Emergency (ER) | payer MEDICARE ==
[~2024-07-14] VITALS: Ht 185.4 cm; Wt 94.1 kg
[2024-07-14 04:21] LABS: BASO # 0.1 10^3/uL (0.0-0.2); BASO % 0.9 % (0.0-1.0); EOS # 0.2 10^3/uL (0.0-0.5); EOS % 1.6 % (0.0-3.0); HEMATOCRIT 51.2 % (42.0-52.0); HEMOGLOBIN 17.1 g/dl (13.5-17.5); LYMPH # 1.7 10^3/uL (1.5-5.0); LYMPH % 18.7 % (24.0-44.0); MEAN CORPUSCULAR HEMOGLOBIN 31.1 pg (27.0-33.0); MEAN CORPUSCULAR HGB CONC 33.4 g/dl (32.0-36.5); MEAN CORPUSCULAR VOLUME 93.3 fl (80.0-96.0); MONO % 10.9 % (2.0-8.0); NEUTROPHILS # 6.2 10^3/uL (1.5-8.5); NEUTROPHILS % 67.5 % (36.0-66.0); PLATELET COUNT, AUTOMATED 349 10^3/uL (150-450); RED BLOOD COUNT 5.49 10^6/uL (4.30-6.10); WHITE BLOOD COUNT 9.2 10^3/uL (4.0-10.0)
[2024-07-14 04:50] LABS: BLOOD UREA NITROGEN 13 MG/DL (9-23); CALCIUM LEVEL 8.8 MG/DL (8.3-10.6); CARBON DIOXIDE LEVEL 26 MMOL/L (20-31); CHLORIDE LEVEL 109 MMOL/L (98-107); CK-MB VALUE MASS < 1.0 NG/ML (<3.6); CPK CREATINE PHOSPHOKINASE 149 U/L (46-171); CREATININE FOR GFR 0.93 MG/DL (0.70-1.30); GLOMERULAR FILTRATION RATE > 90.0 (>49); GLUCOSE, FASTING 111 MG/DL (74-106); MB/CK RELATIVE INDEX 0.67 (< OR =4); POTASSIUM SERUM 4.5 MMOL/L (3.5-5.1); SODIUM LEVEL 143 MMOL/L (136-145)
[2024-07-14 06:06] LABS: CK-MB VALUE MASS < 1.0 NG/ML (<3.6)
[2024-07-14 06:10] LABS: CPK CREATINE PHOSPHOKINASE 143 U/L (46-171); MB/CK RELATIVE INDEX 0.69 (< OR =4)
[2024-07-14] MEDS ORDERED: ISOVUE-370 76% 100ML VIAL As Ordered ONE (07:33)
[2024-07-14 07:50] LABS: LIPASE 36 U/L (12-53)
[2024-07-14 08:09] LABS: ALBUMIN 3.6 G/DL (3.2-5.2); ALKALINE PHOSPHATASE 85 U/L (40-129); ALT/SGPT 30 U/L (7.0-40); AST/SGOT 25 U/L (<34); BILIRUBIN,DIRECT 0.1 MG/DL (<0.4); BILIRUBIN,TOTAL 0.3 MG/DL (0.3-1.2); TOTAL PROTEIN 6.6 G/DL (5.7-8.2)
[2024-07-14] MEDS ORDERED: CARA1TAB6 PO (08:19)
[2024-07-14] MEDS: IPRATROPIUM 0.5MG/ALBUTEROL 2.5MG INH SOL UD 3ML NEB ONE (08:25)
[2024-07-14] MEDS: ALBUTEROL SULFATE 2.5MG/0.5ML INH CONCENTRATE NEB SOLN INH ONE (08:26)
[2024-07-14 08:28] VITALS: BP 126/74; TEMP 97.8; O2SAT 94
== END 2024-07-14 08:36 | disposition home or self-care (01) ==
LOC: M ED 03:51
DX: R07.9 Chest pain, unspecified (principal); K21.9 Gastro-esophageal reflux disease without esophagitis; I44.7 Left bundle-branch block, unspecified; I50.22 Chronic systolic (congestive) heart failure; I11.0 Hypertensive heart disease with heart failure; E78.5 Hyperlipidemia, unspecified; J44.9 Chronic obstructive pulmonary disease, unspecified; F41.9 Anxiety disorder, unspecified; F17.210 Nicotine dependence, cigarettes, uncomplicated; F10.10 Alcohol abuse, uncomplicated; Z88.8 Allergy status to other drugs, medicaments and biological substances; Z79.52 Long term (current) use of systemic steroids; Z79.899 Other long term (current) drug therapy
CPT/HCPCS: 36415; 71045; 71275; 80048; 80076; 82550; 82553; 83690; 83880; 84484; 85025; 93005; 93041; 94640; 94760; 99285; Q9967

== ENCOUNTER 2024-07-22 20:56 | Emergency (ER) | payer MEDICARE, MEDICAID ==
[~2024-07-22] VITALS: Ht 185.4 cm; Wt 94.5 kg
[~2024-07-22 20:56] MED LIST changes: +CARA1TAB6 PO
[2024-07-22 21:56] LABS: BASO # 0.1 10^3/uL (0.0-0.2); BASO % 0.7 % (0.0-1.0); EOS # 0.2 10^3/uL (0.0-0.5); EOS % 2.7 % (0.0-3.0); HEMATOCRIT 51.3 % (42.0-52.0); HEMOGLOBIN 17.3 g/dl (13.5-17.5); LYMPH # 2.4 10^3/uL (1.5-5.0); MEAN CORPUSCULAR HEMOGLOBIN 31.4 pg (27.0-33.0); MEAN CORPUSCULAR HGB CONC 33.7 g/dl (32.0-36.5); MEAN CORPUSCULAR VOLUME 93.1 fl (80.0-96.0); MONO # 1.1 10^3/uL (0.0-0.8); MONO % 12.5 % (2.0-8.0); NEUTROPHILS % 56.4 % (36.0-66.0); PLATELET COUNT, AUTOMATED 304 10^3/uL (150-450); RED BLOOD COUNT 5.51 10^6/uL (4.30-6.10); WHITE BLOOD COUNT 8.9 10^3/uL (4.0-10.0)
[2024-07-22 22:17] LABS: CK-MB VALUE MASS < 1.0 NG/ML (<3.6)
[2024-07-22 22:19] LABS: BLOOD UREA NITROGEN 16 MG/DL (9-23); CALCIUM LEVEL 9.1 MG/DL (8.3-10.6); CARBON DIOXIDE LEVEL 28 MMOL/L (20-31); CHLORIDE LEVEL 107 MMOL/L (98-107); CREATININE FOR GFR 0.95 MG/DL (0.70-1.30); GLOMERULAR FILTRATION RATE > 90.0 (>49); GLUCOSE, FASTING 124 MG/DL (74-106); POTASSIUM SERUM 4.2 MMOL/L (3.5-5.1); SODIUM LEVEL 141 MMOL/L (136-145)
[2024-07-22 22:21] LABS: CPK CREATINE PHOSPHOKINASE 147 U/L (46-171); MB/CK RELATIVE INDEX 0.68 (< OR =4)
[2024-07-22] MEDS: ASPIRIN 81MG CHEW TABLET PO ONE (23:06)
[2024-07-22] MEDS ORDERED: ISOVUE-370 76% 100ML VIAL As Ordered ONE (23:11)
[2024-07-22 23:33] LABS: CK-MB VALUE MASS < 1.0 NG/ML (<3.6)
[2024-07-22 23:38] LABS: CPK CREATINE PHOSPHOKINASE 142 U/L (46-171)
[2024-07-23 00:15] VITALS: BP 151/70; TEMP 97.8; O2SAT 94
== END 2024-07-23 00:29 | disposition home or self-care (01) ==
LOC: M ED 20:56
DX: R07.89 Other chest pain (principal); I44.7 Left bundle-branch block, unspecified; I10 Essential (primary) hypertension; E78.5 Hyperlipidemia, unspecified; K21.9 Gastro-esophageal reflux disease without esophagitis; J44.9 Chronic obstructive pulmonary disease, unspecified; F17.210 Nicotine dependence, cigarettes, uncomplicated; F10.10 Alcohol abuse, uncomplicated; Z88.8 Allergy status to other drugs, medicaments and biological substances; Z79.52 Long term (current) use of systemic steroids; Z79.899 Other long term (current) drug therapy
CPT/HCPCS: 36415; 71045; 71275; 80048; 82550; 82553; 84484; 85025; 93005; 93041; 94760; 99285; Q9967

== ENCOUNTER 2024-09-08 21:32 | Emergency (ER) | payer MEDICARE ==
[~2024-09-08] VITALS: Ht 185.4 cm; Wt 94.5 kg
[2024-09-08 21:48] VITALS: TEMP 98.5
[2024-09-08 22:19] LABS: BASO % 0.4 % (0.0-1.0); EOS # 0.1 10^3/uL (0.0-0.5); EOS % 1.4 % (0.0-3.0); HEMATOCRIT 49.7 % (42.0-52.0); HEMOGLOBIN 16.7 g/dl (13.5-17.5); LYMPH # 1.9 10^3/uL (1.5-5.0); LYMPH % 18.9 % (24.0-44.0); MEAN CORPUSCULAR HEMOGLOBIN 31.4 pg (27.0-33.0); MEAN CORPUSCULAR HGB CONC 33.6 g/dl (32.0-36.5); MEAN CORPUSCULAR VOLUME 93.4 fl (80.0-96.0); MONO # 1.3 10^3/uL (0.0-0.8); MONO % 12.9 % (2.0-8.0); NEUTROPHILS # 6.5 10^3/uL (1.5-8.5); NEUTROPHILS % 66.1 % (36.0-66.0); PLATELET COUNT, AUTOMATED 305 10^3/uL (150-450); RED BLOOD COUNT 5.32 10^6/uL (4.30-6.10); WHITE BLOOD COUNT 9.8 10^3/uL (4.0-10.0)
[2024-09-08 22:35] LABS: INR 0.94; PARTIAL THROMBOPLASTIN TIME 29.7 SECONDS (24.8-34.2); PROTHROMBIN TIME 12.9 SECONDS (12.5-14.5)
[2024-09-08 22:47] LABS: ALBUMIN 3.9 G/DL (3.2-5.2); BILIRUBIN,DIRECT 0.1 MG/DL (<0.4); BILIRUBIN,TOTAL 0.3 MG/DL (0.3-1.2); CREATININE FOR GFR 1.05 MG/DL (0.70-1.30); GLOMERULAR FILTRATION RATE 80.8 (>49); POTASSIUM SERUM 3.9 MMOL/L (3.5-5.1); TOTAL PROTEIN 6.9 G/DL (5.7-8.2)
[2024-09-08 22:48] LABS: CK-MB VALUE MASS 1.7 NG/ML (<3.6)
[2024-09-08 22:52] LABS: MB/CK RELATIVE INDEX 0.63 (< OR =4)
[2024-09-09 05:47] LABS: MB/CK RELATIVE INDEX 0.8 (< OR =4)
[2024-09-09 06:01] VITALS: BP 165/79
[2024-09-09 06:15] VITALS: O2SAT 95
[2024-09-09] MEDS: dexAMETHasone 4 MG/ML 1 ML VIAL PO ONE (06:39)
== END 2024-09-09 06:57 | disposition home or self-care (01) ==
LOC: M ED 21:32
DX: R07.9 Chest pain, unspecified (principal); I44.7 Left bundle-branch block, unspecified; I50.22 Chronic systolic (congestive) heart failure; I25.119 Atherosclerotic heart disease of native coronary artery with unspecified angina pectoris; I11.0 Hypertensive heart disease with heart failure; K21.9 Gastro-esophageal reflux disease without esophagitis; J44.9 Chronic obstructive pulmonary disease, unspecified; E78.5 Hyperlipidemia, unspecified; F17.210 Nicotine dependence, cigarettes, uncomplicated; F10.10 Alcohol abuse, uncomplicated; F41.9 Anxiety disorder, unspecified; Z86.73 Personal history of transient ischemic attack (TIA), and cerebral infarction without residual deficits; Z88.8 Allergy status to other drugs, medicaments and biological substances; Z79.52 Long term (current) use of systemic steroids; Z79.899 Other long term (current) drug therapy
CPT/HCPCS: 36415; 80048; 80076; 82550; 82553; 83690; 84484; 85025; 85610; 85730; 93005; 99285; J1100